=== PATIENT | female | born 1990 | race Caucasian/White ===

== ENCOUNTER 2017-11-15 09:13 | Emergency (ER) | payer OTHER, SELFPAY | END 2017-11-15 10:08 | disposition home or self-care (01) | PROVIDERS: Emergency Provider Nurse Practitioner Family; Visit Provider Nurse Practitioner Family | DX: J06.9 Acute upper respiratory infection, unspecified (principal); F41.8 Other specified anxiety disorders; F17.210 Nicotine dependence, cigarettes, uncomplicated | CPT/HCPCS: 99201 ==

== ENCOUNTER 2017-11-16 08:38 | Outpatient (RCR) | payer OTHER, SELFPAY | END 2017-11-16 23:59 | LOC: OT 08:38 | PROVIDERS: Visit Provider Surgery Plastic and Reconstructive Surgery | DX: S61.219A Laceration without foreign body of unspecified finger without damage to nail, initial encounter (principal) ==

== ENCOUNTER 2017-11-21 13:00 | Outpatient (RCR) | payer OTHER, SELFPAY | END 2017-11-21 23:59 | LOC: OT 13:00 | PROVIDERS: Visit Provider Surgery Plastic and Reconstructive Surgery | DX: S61.219A Laceration without foreign body of unspecified finger without damage to nail, initial encounter (principal) | CPT/HCPCS: 29125; 97018; 97110; 97140; 97165 ==

== ENCOUNTER → 2019-05-08 13:40 | Outpatient (CLI) | payer OTHER, SELFPAY ==
[2019-05-08 14:01] LABS: Basophils # 0.1 K/mm3 (0-0.2); Eosinophils # 0.1 K/mm3 (0.0-0.4); Eosinophils % 0.7 % (0.1-12.0); Hematocrit 42.8 % (37.0-47.0); Hemoglobin 13.8 g/dL (12.2-16.2); Lymphocytes # 1.7 K/mm3 (0.7-4.5); Lymphocytes % 23.4 % (10-50); Mean Corpuscular HGB Conc 32.3 g/dL (31.8-35.4); Mean Corpuscular Hemoglobin 28.3 pg (27.0-31.2); Mean Corpuscular Volume 87.8 fl (81-99); Mean Platelet Volume 7.6 fl (7.4-10.4); Monocytes # 0.5 K/mm3 (0.1-1.0); Monocytes % 7.4 % (1.7-9.3); Neutrophils # 4.8 K/mm3 (1.8-7.8); Neutrophils % 67.6 % (37.0-80.0); Platelet Count 307 K/mm3 (142-424); Red Blood Count 4.87 M/mm3 (4.20-5.40); Red Cell Distribution Width 11.7 % (11.5-17.5); White Blood Count 7.1 K/mm3 (4.8-10.8)
[2019-05-08 15:49] LABS: Alanine Aminotransferase 32 U/L (12-78); Albumin Level 4.2 gm/dL (3.4-5.0); Albumin/Globulin Ratio 1.4 (1.1-1.8); Alkaline Phosphatase 65 U/L (46-116); Anion Gap 16.5 mEq/L (5-15); Aspartate Amino Transferase 16 U/L (15-37); Blood Urea Nitrogen 14 mg/dL (7-18); Calcium 9.1 mg/dL (8.5-10.1); Carbon Dioxide 26 mmol/L (21.0-32.0); Chloride 105 mmol/L (98-107); Chol/HDL Ratio 2.7 (1-3.5); Cholesterol 128 mg/dL (140-200); Creatinine,Serum 0.68 mg/dL (0.55-1.02); Estimated Glomerular Filt Rate 104 ml/min (>60); GFR (African American) 126 ML/MIN (>60); Glucose 89 mg/dL (74-106); HDL Cholesterol 48 mg/dL (29-89); LDL Cholesterol 72 mg/dL (0-130); Potassium 4.5 mmoL/L (3.5-5.1); Sodium 143 mmol/L (136-145); T4 (Thyroxine) 7.6 ug/dl (4.7-13.3); Thyroid Stimulating Hormone 0.87 uIU/ml (0.358-3.740); Total Protein,Serum 7.2 gm/dL (6.4-8.2); Triglycerides 40 mg/dL (30-200); VLDL Cholesterol 8 mg/dL (0-40)
[2019-05-09 07:12] LABS: Hep A Ab, IgM Negative (Negative); Hepatitis B Core Antibody IgM Negative (Negative); Hepatitis B Surface Antigen Negative (Negative)
[2019-05-09 07:48] LABS: HIV Screen 4th Generation wRfx Non Reactive (Non Reactive); Hepatitis C Antibody <0.1 s/co ratio (0.0-0.9)
[2019-05-09 18:57] LABS: CEA 4.4 ng/mL (0.0-4.7); Cancer Antigen (CA) 125 9.9 U/mL (0.0-38.1); Vitamin D 25 Hydroxy 48.5 ng/mL (30.0-100.0)
== END ==
PROVIDERS: Visit Provider Physician Assistant
DX: R63.4 Abnormal weight loss (principal); R10.31 Right lower quadrant pain; R63.0 Anorexia; R68.81 Early satiety
CPT/HCPCS: 80053; 80061; 80074; 82378; 82652; 84436; 84443; 85025; 86316; 86703; G0432

== ENCOUNTER → 2019-05-13 14:49 | Outpatient (CLI) | payer OTHER, SELFPAY ==
--- NOTE | 2019-05-13 14:52 | US_ITS ---
US transvaginal HISTORY: ITS.REASON: RLQ pain ORDERING PHYSICIAN: KENJI Coulter PATIENT AGE: 28 years Comparison: None FINDINGS: Uterus is 8.1 x 4.3 x 4.9 cm. Right ovary is 3.5 x 1.8 x 2.4 cm. Left ovary is 3.4 x 2.2 x 2.3 cm. There is no cul-de-sac fluid. IUD is within the uterine cavity. There are some small follicles involving both ovaries and there is normal blood flow to both ovaries. Endometrial thickness is 6.0 mm. IMPRESSION: Bilateral small ovarian follicles. No acute process.
== END ==
PROVIDERS: PCP Physician Assistant; Visit Provider Physician Assistant
DX: R10.31 Right lower quadrant pain (principal); R63.0 Anorexia; R63.4 Abnormal weight loss; R68.81 Early satiety
CPT/HCPCS: 76830

== ENCOUNTER → 2019-05-27 08:17 | Outpatient (CLI) | payer OTHER, SELFPAY ==
--- NOTE | 2019-05-27 08:19 | CT_ITS ---
CT abdomen pelvis wo con CLINICAL INDICATION: Lower abdominal pain with nausea, 30 pound weight loss ITS.REASON: dyspnea, weight loss, chest pain. ORDERING PHYSICIAN: KENJI Coulter PATIENT AGE: 28 years COMPARISON: None TECHNIQUE: Axial images obtained with sagittal and coronal reformats. All CT scans at the facility use one or more dose reduction, viz: automated exposure control, ma/kV adjustment per patient size (including targeted exams where dose is matched to indication, i.e. head), or iterative reconstruction technique. FINDINGS: No acute finding in the lung bases. The liver, spleen, adrenal glands, pancreas, gallbladder, and kidneys have an unremarkable CT appearance without contrast. No intestinal structure or free air is evident. There is a moderate amount of retained colonic feces throughout the colon. There is an IUD in place. No evidence of appendicitis or diverticulitis. There is a ringlike area of hyperdensity in the right lower quadrant medial to the cecum and could represent a hyperdense diverticulum. There are multiple unopacified bowel loops. This along with scar's of the of the patient's intra-abdominal fat moderately decreases the sensitivity of this exam. If symptoms persist, would recommend follow-up with IV and oral contrast. No acute bony findings. IMPRESSION: 1. No acute abdominal or pelvic findings. 2. There is a ringlike area of hyperdensity in the right lower quadrant medial to the cecum and could represent a hyperdense diverticulum. 3. There are multiple unopacified bowel loops present within the abdomen/pelvis which could obscure or mimic pathology. If symptoms persists, consider repeating exam with IV and oral contrast administration
== END ==
PROVIDERS: PCP Physician Assistant; Visit Provider Physician Assistant
DX: R10.31 Right lower quadrant pain (principal); R63.0 Anorexia; R63.4 Abnormal weight loss; R68.81 Early satiety
CPT/HCPCS: 74176

== ENCOUNTER 2020-07-22 14:15 | Emergency (ER) | payer BC, OTHER, SELFPAY ==
[2020-07-22 14:50] VITALS: BP 107/63; PULSE 75; RESP 17; TEMP 36.5; O2SAT 100; BMI 26.5
--- NOTE | 2020-07-22 14:56 | HMH.EDUTC ---
[facility] [place]ression: Sinusitis Qualifiers: Sinusitis location: unspecified location Chronicity: acute Recurrence: non-recurrent Qualified Code(s): J01.90 - Acute sinusitis, unspecified Pharyngitis Qualifiers: Pharyngitis/tonsillitis etiology: unspecified etiology Qualified Code(s): J02.9 - Acute pharyngitis, unspecified Disposition: Home, Self-Care Condition on Discharge: Good Instructions: Sinusitis, DI for Sinusitis Additional Instructions: Drink plenty of fluids. Take tylenol or ibuprofen for pain or fever. Take the medications as directed. Follow up with your regular doctor. GO TO THE ER FOR ANY WORSENING SYMPTOMS Prescriptions: Brompheniramine/Pseudoephed/Dm [Bromfed Dm Cough Syrup] 5 ml PO Q6HP PRN #240 syrup PRN Reason: Cough Transmission Status: Received by [facility] predniSONE [Deltasone 10mg tablet] 10 mg PO BID 3 Days #6 tab Transmission Status: Received by [facility] Azithromycin [Z-Emmanuel 250mg Tab*] 250 mg PO UD DOSE PK #6 tab Transmission Status: Received by [facility] Referrals: Koki Barajas PA [Primary Care Provider] - Forms: Work/School Release Time of Disposition: 15:18 Medical Decision Making - Medical Records Medical records reviewed: No: I reviewed the patient's medical records. - Spencer Inquiry Pt receiving controlled substance: No Vital Signs: 07/22/20 14:50 07/22/20 15:05 Temperature 97.7 F 97.7 F Temperature Source Oral Oral Pulse Rate 75 Pulse Rate [Left] 75 Respiratory Rate 17 17 Blood Pressure 107/63 L Blood Pressure [Right Arm] 107/63 L Blood Pressure Mean [Right Arm] 77 Blood Pressure Source Automatic Cuff Blood Pressure Source [Right Arm] Automatic Cuff Blood Pressure Position Sitting Blood Pressure Position [Right Arm] Sitting 02 Sat by Pulse Oximetry 100 Oxygen Delivery Method Room Air Room Air - Lab Data Lab results reviewed: Yes: I reviewed the patient's lab results. Lab Results 07/22/20 15:05: Strep Scn Rapid Clinic Negative Orders (Tests/Meds): ORDERS Category Date Time Status Covid-19 Nasal PCR Sendout Eliud Stat Lab 07/22/20 15:17 Received Strep Screen Confirmation Stat Micro 07/22/20 15:05 [place] [facility] [place] - General Stated complaint: Nausea, congestion in face Time Seen by Provider: 07/22/20 14:57 - History of Present Illness Provider Complaint: She c/o sinus congestion, sinus drainage, chilling, low grade fever, and nausea for the past 2 days. She denies any known exposure to COVID-19. - Related Data Previous Rx's Medication Instructions Recorded Brompheniramine/Pseudoephed/Dm 5 ml PO Q6HP PRN #240 syrup 02/01/20 [Bromfed Dm Cough Syrup] Ondansetron [Zofran 4mg ODT] 4 mg PO Q8HP PRN #20 tab.rapdis 02/01/20 bupropion HCl 150 mg 24 hr tablet, 150 mg PO DAILY #90 tab 05/20/20 extended release buspirone 5 mg tablet 5 mg PO TID #90 tab 05/20/20 paroxetine HCl 20 mg tablet 20 mg PO DAILY 90 Days #90 tab 05/21/20 Azithromycin [Z-Emmanuel 250mg Tab*] 250 mg PO UD DOSE PK #6 tab 07/22/20 Brompheniramine/Pseudoephed/Dm 5 ml PO Q6HP PRN #240 syrup 07/22/20 [Bromfed Dm Cough Syrup] predniSONE [Deltasone 10mg tablet] 10 mg PO BID 3 Days #6 tab 07/22/20 Allergies Allergy/AdvReac Type Severity Reaction Status Date / Time No Known Allergies Allergy Verified 07/03/19 16:52 [facility] History - Hepatitis A Screen Attestation statement:: This patient has been screened for Hepatitis A risk factors. I have reviewed the patient's past medical history: Yes 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: Reports:: Anxiety, Depression Denies:: Cancer, Diabetes Mellitus Type 1, Diabetes Mellitus Type 2, MRSA Other Surgeries: Yes: Other Amputation: No Fractures: No Comment: d n c, finger - 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 Smoking Status: Current every day smoker Tobacco Type: cigarettes # Packs/Day (cigarettes): 2 Alcohol Intake: never Alcohol Intake Frequency:: holidays/special occasio
[2020-07-22 15:05] VITALS: BP 107/63; PULSE 75; RESP 17; TEMP 36.5; O2SAT 100
[2020-07-22 15:34] LABS: UTC Strep Screen (Rapid) Negative (Negative)
[2020-07-24 13:24] LABS: Covid-19 Nasal PCR Sendout Lex NOT DETECTED
== END 2020-07-22 15:37 | disposition home or self-care (01) ==
PROVIDERS: Emergency Provider Nurse Practitioner Family; PCP Physician Assistant
DX: J01.90 Acute sinusitis, unspecified (principal); J02.9 Acute pharyngitis, unspecified; F41.8 Other specified anxiety disorders; Z20.828 Contact with and (suspected) exposure to other viral communicable diseases; F17.210 Nicotine dependence, cigarettes, uncomplicated; F12.10 Cannabis abuse, uncomplicated
CPT/HCPCS: 87880; 99202; U0004

== ENCOUNTER 2021-07-12 18:14 | Emergency (ER) | payer OTHER, SELFPAY ==
[2021-07-12 19:35] VITALS: BP 0/0; PULSE 0; RESP 0; TEMP -17.7; TEMP 0; O2SAT 0
== END 2021-07-12 19:36 | disposition left against medical advice (07) ==
PROVIDERS: Emergency Provider Nurse Practitioner Family; PCP Physician Assistant
DX: Z53.21 Procedure and treatment not carried out due to patient leaving prior to being seen by health care provider (principal)

== ENCOUNTER → 2021-09-21 14:58 | Outpatient (CLI) | payer BC, OTHER, SELFPAY ==
--- NOTE | 2021-09-21 15:01 | XR_ITS ---
PROCEDURE: XR HAND LT MIN 3V CLINICAL INDICATION: pointer finger injury COMPARISON: CR HANDR3 HAND-RT 3 VIEWS from 09/24/2017 FINDINGS: No fracture or dislocation. No lytic or blastic change. There is normal mineralization. The joint spaces are well-preserved. No significant degenerative/arthritic changes. No erosive changes evident. Other findings:None. IMPRESSION: No acute findings. Dictated by: Ralhp Contreras MD 09/21/2021 16:42 Ralph Contreras MD in [place] 09/21/2021 16:42
== END ==
PROVIDERS: PCP Physician Assistant; Visit Provider Physician Assistant
DX: M79.645 Pain in left finger(s) (principal)
CPT/HCPCS: 73130

== ENCOUNTER 2022-02-07 17:52 | Emergency (ER) | payer OTHER, SELFPAY ==
--- NOTE | 2022-02-07 19:06 | HMH.EDUTC ---
[facility] [place] Impression: Acute bronchitis Qualifiers: Bronchitis organism: unspecified organism Qualified Code(s): J20.9 - Acute bronchitis, unspecified Sinusitis Qualifiers: Sinusitis location: unspecified location Chronicity: acute Recurrence: non-recurrent Qualified Code(s): J01.90 - Acute sinusitis, unspecified Disposition: Home, Self-Care Condition on Discharge: Good Instructions: DI for Sinusitis, DI for Acute Bronchitis Additional Instructions: Drink plenty of fluids. Take tylenol or ibuprofen for pain or fever. Take the medications as directed. Follow up with your regular doctor. GO TO THE ER FOR ANY WORSENING SYMPTOMS Prescriptions: Promethazine/Dextromethorphan [Promethazine-Dm Syrup] 5 ml PO Q6HP PRN #240 ml PRN Reason: Cough Transmission Status: Received by [facility] methylPREDNISolone [Medrol] 4 mg PO DIRECTED 6 Days #21 packet Transmission Status: Received by [facility] guaiFENesin [Mucinex 600mg tablet] 1 - 2 tab PO BIDP PRN #30 tab PRN Reason: Congestion Transmission Status: Received by [facility] Azithromycin [Z-Emmanuel 250mg Tab*] 250 mg PO UD DOSE PK #6 tab Transmission Status: Received by [facility] Referrals: Koki Barajas PA [Primary Care Provider] - Forms: Work/School Release Time of Disposition: 19:15 Medical Decision Making - Medical Records Medical records reviewed: No: I reviewed the patient's medical records. - Spencer Inquiry Pt receiving controlled substance: No Vital Signs: 02/07/22 19:14 02/07/22 19:20 Temperature 98.5 F 98.5 F Temperature Source Oral Oral Pulse Rate 61 Pulse Rate [Left Radial] 67 Respiratory Rate 16 17 Blood Pressure 114/70 Blood Pressure [Right Arm] 113/67 Blood Pressure Mean [Right Arm] 82 02 Sat by Pulse Oximetry 100 Oxygen Delivery Method Room Air - Lab Data Lab results reviewed: Yes: I reviewed the patient's lab results. Lab Results 02/07/22 18:54: Strep Scn Rapid Clinic Negative Orders (Tests/Meds): ORDERS Category Date Time Status Strep Screen Confirmation Stat Micro 02/07/22 18:54 [place] [facility] [place] - General Stated complaint: head congestion,sore throat, ears Time Seen by Provider: 02/07/22 19:06 - History of Present Illness Provider Complaint: She c/o having a cough with yellowish sputum, sore throat, sinus congestion, chilling at times, but no documented fever for the past 1 week. - Related Data Previous Rx's Medication Instructions Recorded cariprazine 1.5 mg capsule 1.5 mg PO DAILY #30 cap 09/06/21 clindamycin 1 %-benzoyl peroxide 5 1 applic TOPICAL BID #50 g 09/06/21 % topical gel minocycline 100 mg capsule 100 mg PO BID #60 cap 09/06/21 venlafaxine 75 mg capsule,extended 75 mg PO DAILY #30 cap 09/21/21 release 24 hr Azithromycin [Z-Emmanuel 250mg Tab*] 250 mg PO UD DOSE PK #6 tab 02/07/22 Promethazine/Dextromethorphan 5 ml PO Q6HP PRN #240 ml 02/07/22 [Promethazine-Dm Syrup] guaiFENesin [Mucinex 600mg tablet] 1 - 2 tab PO BIDP PRN #30 tab 02/07/22 methylPREDNISolone [Medrol] 4 mg PO DIRECTED 6 Days #21 02/07/22 packet Allergies Allergy/AdvReac Type Severity Reaction Status Date / Time No Known Allergies Allergy Verified 09/21/21 14:11 [facility] History - Hepatitis A Screen Attestation statement:: This patient has been screened for Hepatitis A risk factors. I have reviewed the patient's past medical history: Yes 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: Reports:: Anxiety, Depression Denies:: Cancer, Diabetes Mellitus Type 1, Diabetes Mellitus Type 2, Internal Pacemaker, MRSA Laterality Cases: Left: Other Other Surgeries: Yes: Dilation and Curettage, Other. No: Pacemaker Amputation: No Fractures: No Comment: d n c, finger - 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 Smoking Status: Never smoker Tobacco Type: smokeless tobacco # Packs/Day (cigarettes): 1 Alcohol Intake: current Alcohol Intake Frequency:: holidays/special occasions onl
[2022-02-07 19:12] LABS: UTC Strep Screen (Rapid) Negative (Negative)
[2022-02-07 19:14] VITALS: BP 113/67; PULSE 67; RESP 16; TEMP 36.9; O2SAT 100; BMI 22.1
[2022-02-07 19:20] VITALS: BP 114/70; PULSE 61; RESP 17; TEMP 36.9; O2SAT 100
== END 2022-02-07 19:22 | disposition home or self-care (01) ==
PROVIDERS: Emergency Provider Nurse Practitioner Family; PCP Physician Assistant
DX: J20.9 Acute bronchitis, unspecified (principal); J01.90 Acute sinusitis, unspecified
CPT/HCPCS: 87880; 99213; G0463

== ENCOUNTER 2022-04-14 07:50 | Emergency (ER) | payer OTHER, SELFPAY ==
[2022-04-14] VITALS (8 sets, daily range): BP systolic 100–124; BP diastolic 45–80; PULSE 65–76; RESP 18–19; TEMP 37; O2SAT 97–100; BMI 23.0
--- NOTE | 2022-04-14 07:53 | PC.NURSE ---
pt ambulatory to restroom to provide urine specimen without complications
--- NOTE | 2022-04-14 07:58 | PC.NURSE ---
pt ambulatory to ED room 10 from restroom without complications; UA sent to lab. February, RN at patient given warm blanket and has no other needs at this time.
[2022-04-14 08:01] LABS: Microscopic, Urine URINE MICROSCOPIC (MICROSCOPIC)
[2022-04-14 08:03] LABS: Appearance,Urine CLEAR (Clear); Blood, Urine 1+ (Negative); Color,Urine YELLOW (Yellow); Glucose,Urine (UA) Negative (Negative); Ketones,Urine Negative (Negative); Leukocyte Esterase,Urine Negative (Negative); Nitrate,Urine Negative (Negative); PH,Urine 6.5 (5.0-8.5); Protein,Urine TRACE (Negative); Specific Gravity, Urine 1.025 (1.005-1.030)
[2022-04-14 08:05] LABS: Urine Pregnancy, HCG Qual. Negative (Negative)
--- NOTE | 2022-04-14 08:06 | HMH.EDGENADL ---
ED Disposition Clinical Impression: Enterocolitis Disposition: Home, Self-Care Condition on Discharge: Good Instructions: DI for Enteritis Additional Instructions: Collect a diarrhea sample using the provided supplies and return it along with the order form to ER registration at [facility] for testing. Obtain the results of this test from your primary care provider the next day. Bentyl and ibuprofen as needed for pain. Follow-up with primary care provider if not improved in 4 to 5 days. Additional instructions for ABDOMINAL PAIN: Return immediately if worsening abdominal pain, vomiting, shortness of breath, fever, bloody diarrhea, vomiting of blood or abdominal distention. Prescriptions: Ibuprofen [Ibuprofen 600mg Tab] 600 mg PO Q6HP PRN #20 tab PRN Reason: Moderate Pain Transmission Status: Pending to [facility] Dicyclomine HCl [Bentyl 10mg capsule] 10 mg PO TIDP PRN #10 cap PRN Reason: Cramping Transmission Status: Pending to [facility] Referrals: Koki Barajas PA [Primary Care Provider] - - Critical Care Critical Care Time: No Attestation: On , the high probability of a clinically significant, sudden or life threatening deterioration of the following system(s) required my full and direct attention, intervention and personal management. The time I documented below is in addition to time spent performing reported procedures but includes the following listed in this critical care notation. Medical Decision Making - Spencer Inquiry Pt receiving controlled substance: No Vital Signs: 04/14/22 07:51 04/14/22 08:45 04/14/22 09:12 Temperature 98.6 F Temperature Source Oral Pulse Rate 67 Pulse Rate [Left Radial] 76 Respiratory Rate 18 Blood Pressure 105/64 L 121/76 Blood Pressure [Right Arm] 124/45 L Blood Pressure Mean 77 Blood Pressure Mean [Right Arm] 71 Blood Pressure Source Automatic Cuff Blood Pressure Source [Right Arm] Automatic Cuff Blood Pressure Position Sitting Blood Pressure Position [Right Arm] Sitting 02 Sat by Pulse Oximetry 97 100 Oxygen Delivery Method Room Air Room Air 04/14/22 09:31 04/14/22 10:00 04/14/22 10:36 Temperature Temperature Source Pulse Rate 66 75 67 Pulse Rate [Left Radial] Respiratory Rate Blood Pressure 100/55 L 101/54 L 116/80 Blood Pressure [Right Arm] Blood Pressure Mean Blood Pressure Mean [Right Arm] Blood Pressure Source Automatic Cuff Automatic Cuff Automatic Cuff Blood Pressure Source [Right Arm] Blood Pressure Position Sitting Sitting Sitting Blood Pressure Position [Right Arm] 02 Sat by Pulse Oximetry 100 98 99 Oxygen Delivery Method Room Air Room Air Room Air 04/14/22 11:04 Temperature Temperature Source Pulse Rate 72 Pulse Rate [Left Radial] Respiratory Rate Blood Pressure 107/70 L Blood Pressure [Right Arm] Blood Pressure Mean Blood Pressure Mean [Right Arm] Blood Pressure Source Automatic Cuff Blood Pressure Source [Right Arm] Blood Pressure Position Sitting Blood Pressure Position [Right Arm] 02 Sat by Pulse Oximetry 99 Oxygen Delivery Method Room Air - Lab Data Lab Results 04/14/22 07:56: Urine Color Yellow, Urine Appearance Clear, Urine pH 6.5, Ur Specific [place] 1.025, Urine Protein Trace, Urine Glucose (UA) Negative, Urine Ketones Negative, Urine Blood 1+, Urine Nitrate Negative, Urine Bilirubin 1+ A, Urine Urobilinogen 1.0, Ur Leukocyte Esterase Negative, Urine RBC 3-5, Urine WBC Occasional, Ur Squamous Epith Cells 10-20, Calcium Oxalate Crystal Trace, Urine Bacteria 4+, Urine Mucus 4+, Urine Yeast Occasional 04/14/22 07:56: Urine HCG, Qual Negative 04/14/22 08:05: WBC 6.4, RBC 4.43, Hgb 13.7, Hct 39.0, MCV 88.0, MCH 30.8, MCHC 35.0, RDW 12.8, Plt Count 317, MPV 7.9, Neut % (Auto) 76.6, Lymph % (Auto) 13.7, Becker % (Auto) 6.4, Eos % (Auto) 1.1, Baso % (Auto) 2.1 H, Neut # (Auto) 4.9, Lymph # (Auto) 0.9, Becker # (Auto) 0.4, Eos # (Aut
[2022-04-14 08:09] LABS: Bilirubin,Urine 1+ (Negative)
[2022-04-14 08:18] LABS: WBC,Urine Occasional #/hpf (0-3)
[2022-04-14 08:19] LABS: Bacteria,Urine 4+ /lpf; Calcium Oxalate Crystals,Urine Trace /lpf; Mucus,Urine 4+ /lpf; Yeast,Urine Occasional /lpf
--- NOTE | 2022-04-14 08:19 | CT_ITS ---
FINAL REPORT TECHNIQUE: Thin section axial images were obtained from the lung bases to the pubic symphysis without IV contrast. Oral contrast was administered. CLINICAL HISTORY: lt lower abdominal pain, cramping, vomiting oral contrast FINDINGS: There are no renal or ureteral stones. There is no hydronephrosis or perinephric stranding. The gallbladder is present. The remaining unenhanced solid abdominal organs are unremarkable. There is no evidence of small bowel obstruction. The appendix is normal. There is long segment: Wall thickening favoring mild colitis. There is no lymphadenopathy or ascites. There is an IUD within the uterus. The ovaries are normal for patient age. No acute osseous abnormality is identified. IMPRESSION: Probable infectious or inflammatory colitis. Reviewed, Interpreted and Dictated by Dedra Coronado MD Transcribed by Timothy Miranda Authenticated by Dedra Coronado MD on 04/14/2022 11:19:56 AM [facility]
[2022-04-14 08:23] LABS: Basophils # 0.1 K/mm3 (0-0.2); Basophils % 2.1 % (0.1-2.0); Eosinophils # 0.1 K/mm3 (0.0-0.4); Eosinophils % 1.1 % (0.1-12.0); Hemoglobin 13.7 g/dL (12.2-16.2); Lymphocytes # 0.9 K/mm3 (0.7-4.5); Lymphocytes % 13.7 % (10-50); Mean Corpuscular Hemoglobin 30.8 pg (27.0-31.2); Mean Platelet Volume 7.9 fl (7.4-10.4); Monocytes # 0.4 K/mm3 (0.1-1.0); Monocytes % 6.4 % (1.7-9.3); Neutrophils # 4.9 K/mm3 (1.8-7.8); Neutrophils % 76.6 % (37.0-80.0); Platelet Count 317 K/mm3 (142-424); Red Blood Count 4.43 M/mm3 (4.20-5.40); Red Cell Distribution Width 12.8 % (11.5-17.5); White Blood Count 6.4 K/mm3 (4.8-10.8)
[2022-04-14 08:37] LABS: Alanine Aminotransferase 17 U/L (12-78); Albumin Level 4.1 g/dl (3.5-5.0); Albumin/Globulin Ratio 1.6 (1.1-1.8); Alkaline Phosphatase 55 U/L (38-126); Amylase 46 U/L (30-110); Anion Gap 12.5 mEq/L (5-15); Aspartate Amino Transferase 21 U/L (14-36); Blood Urea Nitrogen 10 mg/dl (7-17); Calcium 8.9 mg/dl (8.4-10.2); Carbon Dioxide 27 mmol/L (22.0-30.0); Chloride 105 mmol/L (98-107); Creatinine Clearance Estimated 96 mL/min (50-200); Estimated Glomerular Filt Rate 84 ml/min (>60); GFR (African American) 102 ML/MIN (>60); Globulin 2.5 g/dL (1.3-3.2); Glucose 109 mg/dl (74-100); Lipase 49 U/L (23-300); Potassium 3.5 mmoL/L (3.5-5.1); Sodium 141 mmol/L (136-145); Total Protein,Serum 6.6 g/dl (6.3-8.2)
[2022-04-14 08:51] LABS: HCG Qualitative, Serum Negative (Negative)
--- NOTE | 2022-04-14 10:14 | PC.NURSE ---
Patient ambulatory to CT with music sound light technician
--- NOTE | 2022-04-14 11:05 | PC.NURSE ---
February, RN at giving patient update
--- NOTE | 2022-04-14 11:22 | PC.NURSE ---
ED MD at speaking with patient
--- NOTE | 2022-04-14 11:29 | PC.NURSE ---
Christina Bone, RN at discussing discharge instructions
== END 2022-04-14 11:36 | disposition home or self-care (01) ==
PROVIDERS: Emergency Provider Emergency Medicine; PCP Physician Assistant
DX: K52.9 Noninfective gastroenteritis and colitis, unspecified (principal); R50.9 Fever, unspecified; F32.A Depression, unspecified; F41.9 Anxiety disorder, unspecified; F17.290 Nicotine dependence, other tobacco product, uncomplicated
CPT/HCPCS: 74176; 80053; 81001; 81025; 82150; 83690; 84703; 85025; 87086; 96361; 96374; 96375; 99285; J2405

== ENCOUNTER → 2022-04-14 12:57 | Outpatient (CLI) | payer OTHER, SELFPAY ==
[2022-04-14 13:04] LABS: Adenovirus F 40/41, stool Not Detected (NotDetected); Astrovirus Not Detected (NotDetected); Campylobacter Not Detected (NotDetected); Clostridium Difficile A/B, PCR Not Detected (NotDetected); Cryptosporidium Not Detected (NotDetected); Cyclospora Cayetanesis Not Detected (NotDetected); Entamoeba histolytica Not Detected (NotDetected); Enteroaggregative E coli Not Detected (NotDetected); Enteropathogenic E coli Not Detected (NotDetected); Enterotoxigenic E coli Not Detected (NotDetected); Giardia lamblia Not Detected (NotDetected); Norovirus Not Detected (NotDetected); Plesimonas Shigalloides, PCR Not Detected (NotDetected); Rotavirus A Not Detected (NotDetected); Salmonella, PCR Not Detected (NotDetected); Sapovirus Not Detected (NotDetected); Shiga-like toxin E coli Not Detected (NotDetected); Shigella Enterovasive E coli Not Detected (NotDetected); Vibrio Cholerae Not Detected (NotDetected); Vibrio, PCR Not Detected (NotDetected); Yersinia Entercolitica, PCR Not Detected (NotDetected)
== END ==
PROVIDERS: PCP Physician Assistant; Visit Provider Emergency Medicine
DX: K52.9 Noninfective gastroenteritis and colitis, unspecified
CPT/HCPCS: 87506

== ENCOUNTER 2022-06-03 12:20 | Emergency (ER) | payer OTHER, SELFPAY ==
[2022-06-03 12:32] VITALS: BP 117/67; PULSE 93; RESP 16; TEMP 37.1; O2SAT 97; BMI 21.2
--- NOTE | 2022-06-03 13:12 | HMH.EDUTC ---
[facility] [place]ression: Viral syndrome, COVID-19 Disposition: Home, Self-Care Condition on Discharge: Good Instructions: DI for COVID-19 (Suspected or Confirmed ), Preventing the Spread of Coronavirus Discharge Instructions Additional Instructions: Drink plenty of fluids. Take tylenol or ibuprofen for pain or fever. Take the medications as directed. Follow up with your regular doctor. GO TO THE ER FOR ANY WORSENING SYMPTOMS Quarantine until you know the results of your covid-19 test. Notify your school or workplace of your results and follow their instructions regarding return to work/school. The cough medication (promethazine dm) will make you drowsy, so don't drive or operate heavy machinery after taking it. Prescriptions: Promethazine/Dextromethorphan [Promethazine-Dm Syrup] 5 ml PO Q6HP PRN #240 ml PRN Reason: Cough Transmission Status: Received by [facility] Ondansetron [Zofran 4mg ODT] 4 mg PO Q8HP PRN #12 tab PRN Reason: Nausea Transmission Status: Received by [facility] Benzonatate [Benzonatate 100mg cap] 100 mg PO TIDP PRN #30 cap PRN Reason: Cough Transmission Status: Received by [facility] Referrals: Koki Barajas PA [Primary Care Provider] - Time of Disposition: 13:20 Medical Decision Making - Medical Records Medical records reviewed: No: I reviewed the patient's medical records. - Spencer Inquiry Pt receiving controlled substance: No Vital Signs: 06/03/22 12:32 06/03/22 13:22 Temperature 98.7 F 98.7 F Temperature Source Oral Pulse Rate 93 H Pulse Rate [Left] 93 H Respiratory Rate 16 16 Blood Pressure 117/67 Blood Pressure [Right Arm] 117/67 Blood Pressure Mean [Right Arm] 83 02 Sat by Pulse Oximetry 97 - Lab Data Lab results reviewed: Yes: I reviewed the patient's lab results. [facility] [place] General Stated complaint: at home covid pos 06/02, congestion, h/a, fever Time Seen by Provider: 06/03/22 13:15 Description of Symptoms (Recalled from Triage Doc. by RN): patient comes in for covid test. symptoms began 2 days ago runny nose, fever, chillls, body aches. tested positive at home. HEENT Symptoms (Recalled from RN notes): Yes Resp Symptoms (Recalled from RN notes): Yes Skin Symptoms (Recalled from RN notes): No MS Symptoms (Recalled from RN notes): No Functional Status (Recalled from RN notes): n/a - History of Present Illness Provider Complaint: She is here for a covid-19 test. She has felt bad for the past 3 days. she was exposed to covid-19 before her symptoms began. - Related Data Previous Rx's Medication Instructions Recorded venlafaxine 75 mg capsule,extended 75 mg PO DAILY #30 cap 09/21/21 release 24 hr Dicyclomine HCl [Bentyl 10mg 10 mg PO TIDP PRN #10 cap 04/14/22 capsule] Ibuprofen [Ibuprofen 600mg Tab] 600 mg PO Q6HP PRN #20 tab 04/14/22 Benzonatate [Benzonatate 100mg 100 mg PO TIDP PRN #30 cap 06/03/22 cap] Ondansetron [Zofran 4mg ODT] 4 mg PO Q8HP PRN #12 tab 06/03/22 Promethazine/Dextromethorphan 5 ml PO Q6HP PRN #240 ml 06/03/22 [Promethazine-Dm Syrup] Allergies Allergy/AdvReac Type Severity Reaction Status Date / Time No Known Allergies Allergy Verified 06/03/22 12:35 - Worker's Comp Is this a Worker's Comp case?: No [facility] History - Hepatitis A Screen Attestation statement:: This patient has been screened for Hepatitis A risk factors. I have reviewed the patient's past medical history: Yes 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: Reports:: Anxiety, Depression Denies:: Cancer, Diabetes Mellitus Type 1, Diabetes Mellitus Type 2, Internal Pacemaker, MRSA Laterality Cases: Left: Other Other Surgeries: Yes: Dilation and Curettage, Other. No: Pacemaker Amputation: No Fractures: No Comment: d n c, finger - 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 Smoking Status: Current every day smoker Tobacco Type: e-cigarettes # Packs/Day (cigarettes): 1 Alcohol Intake: current Alcohol Inta
[2022-06-03 13:22] VITALS: BP 117/67; PULSE 93; RESP 16; TEMP 37.1
== END 2022-06-03 13:26 | disposition home or self-care (01) ==
PROVIDERS: Emergency Provider Nurse Practitioner Family; PCP Physician Assistant
DX: U07.1 COVID-19 (principal)
CPT/HCPCS: 99212; C9803; G0463; U0003; U0005

== ENCOUNTER 2022-06-28 21:44 | Emergency (ER) | payer OTHER, SELFPAY ==
[2022-06-28 21:46] VITALS: BP 110/68; PULSE 103; RESP 16; TEMP 38.7; O2SAT 100; BMI 21.2
--- NOTE | 2022-06-28 22:04 | HMH.EDURI ---
ED Disposition Instructions: DI for Diarrhea and Traveler's Diarrhea -- Adult, DI for Diarrhea and Traveler's Diarrhea -- Child, DI for Nausea -- Adult, DI for Nausea -- Child Referrals: Koki Barajas PA [Primary Care Provider] - Attestation: On 06/28/22, the high probability of a clinically significant, sudden or life threatening deterioration of the following system(s) required my full and direct attention, intervention and personal management. The time I documented below is in addition to time spent performing reported procedures but includes the following listed in this critical care notation. Medical Decision Making - Medical Records Medical records reviewed: Yes: I reviewed the patient's medical records. - Spencer Inquiry Pt receiving controlled substance: No Vital Signs: 06/28/22 21:46 Temperature 101.7 F H Temperature Source Oral Pulse Rate [Left Radial] 103 H Respiratory Rate 16 Blood Pressure [Right Arm] 110/68 Blood Pressure Mean [Right Arm] 82 Blood Pressure Source [Right Arm] Automatic Cuff Blood Pressure Position [Right Arm] Sitting 02 Sat by Pulse Oximetry 100 Oxygen Delivery Method Room Air - Lab Data Lab results reviewed: Yes: I reviewed the patient's lab results. Orders (Tests/Meds): ED MEDICATIONS Generic Name Dose Route Start Last Admin Trade Name Freq PRN Reason Stop Dose Admin Sodium Chloride 1,000 mls @ 999 mls/hr 06/28/22 22:15 06/28/22 22:07 Sod Chlor 0.9% 1000ml Bag IV 06/28/22 23:15 999 mls/hr .[id number] JAYLIN Administration Discontinued Medications Generic Name Dose Route Start Last Admin Trade Name Freq PRN Reason Stop Dose Admin Acetaminophen 1,000 mg 06/28/22 22:04 06/28/22 22:09 Acetaminophen 500mg Tab PO 06/28/22 22:05 1,000 mg ONCE ONE Administration Ketorolac Tromethamine 30 mg 06/28/22 22:05 Ketorolac 30mg/Ml Vial IV 06/28/22 22:06 ONCE ONE Ondansetron HCl 4 mg 06/28/22 22:04 Ondansetron 4mg/2ml Vial IV 06/28/22 22:05 ONCE ONE ORDERS Category Date Time Status C-Reactive Protein Stat Lab 06/28/22 21:55 Received Complete Blood Count Auto Diff Stat Lab 08/09/22 21:55 Received Comprehensive Metabolic Panel Stat Lab 06/28/22 21:55 Received Diarrhea 23 Panel, PCR Stat Lab 06/28/22 22:13 Ordered Erythrocyte Sedimentation Rate Stat Lab 06/28/22 21:55 Received Lactic Acid Stat Lab 06/28/22 21:55 Received Procalcitonin Stat Lab 06/28/22 21:55 Received Rapid PCR Covid and Flu A/B Stat Lab 06/28/22 22:03 Ordered Rapid Strep Scrn Group A [Strep Scrn Group A (Rapid)] Lab 06/28/22 21:55 Received Stat Urinalysis and Microscopic Stat Lab 06/28/22 21:50 Received Urine , HCG Qual. Stat Lab 06/28/22 21:50 Received Blood Culture Stat Micro 06/28/22 22:03 Ordered URI/Sore Throat HPI - General Chief Complaint: Nausea/Vomiting/Diarrhea Stated Complaint: fever,V&D,Body Aches Time Seen by Provider: 06/28/22 22:04 Mode of Arrival: Ambulatory Source of Information: Patient, Medical Record Limitations: No Limitations Description of Symptoms (Recalled from ER Triage Doc. by RN): PT REPORTS BODY ACHES, FEVER AT HOME, SORE THROAT, NAUSEA, DIARRHEA THAT BEGAN TODAY. - History of Present Illness HPI Narrative: achey and sore throat with dec appetite and fever all started today MD Complaint: fever, sore throat Onset (ago): hour(s) Severity: moderate Able to tolerate fluids by mouth: Yes Associated symptoms: denies other symptoms Treatments prior to arrival: none - Related Data Home Medications Medication Instructions Recorded Confirmed No Known Home Medications 06/28/22 06/28/22 Allergies Allergy/AdvReac Type Severity Reaction Status Date / Time No Known Allergies Allergy Verified 06/03/22 12:35 [facility] History - Hepatitis A Screen Attestation statement:: This patient has been screened for Hepatitis A risk factors. I have reviewed the patient's past medical histor
[2022-06-28 22:11] LABS: Microscopic, Urine URINE MICROSCOPIC (MICROSCOPIC)
[2022-06-28 22:13] LABS: Basophils # 0.1 K/mm3 (0-0.2); Basophils % 0.5 % (0.1-2.0); Eosinophils % 0.3 % (0.1-12.0); Lymphocytes # 0.8 K/mm3 (0.7-4.5); Mean Corpuscular HGB Conc 34.3 g/dL (31.8-35.4); Mean Corpuscular Hemoglobin 30.9 pg (27.0-31.2); Mean Corpuscular Volume 90.1 fl (81-99); Monocytes # 0.8 K/mm3 (0.1-1.0); Monocytes % 5.7 % (1.7-9.3); Neutrophils % 87.5 % (37.0-80.0); Platelet Count 296 K/mm3 (142-424); Red Blood Count 4.22 M/mm3 (4.20-5.40); Red Cell Distribution Width 12.2 % (11.5-17.5); White Blood Count 13.7 K/mm3 (4.8-10.8)
[2022-06-28 22:14] VITALS: BP 104/66; PULSE 86; RESP 16; O2SAT 99
[2022-06-28 22:16] LABS: Appearance,Urine CLEAR (Clear); Bilirubin,Urine Negative (Negative); Blood, Urine Negative (Negative); Color,Urine YELLOW (Yellow); Glucose,Urine (UA) Negative (Negative); Ketones,Urine 1+ (Negative); Leukocyte Esterase,Urine Negative (Negative); Nitrate,Urine Negative (Negative); Protein,Urine TRACE (Negative); Specific Gravity, Urine 1.025 (1.005-1.030)
[2022-06-28 22:18] LABS: Urine Pregnancy, HCG Qual. Negative (Negative)
[2022-06-28 22:19] LABS: Coronavirus 19, PCR Not Detected (NotDetected); Influenza A, PCR Not Detected (NotDetected); Influenza B, PCR Not Detected (NotDetected)
[2022-06-28 22:26] LABS: Alanine Aminotransferase 14 U/L (12-78); Albumin Level 4.5 g/dl (3.5-5.0); Albumin/Globulin Ratio 1.7 (1.1-1.8); Alkaline Phosphatase 73 U/L (38-126); Anion Gap 11.5 mEq/L (5-15); Aspartate Amino Transferase 21 U/L (14-36); Bilirubin,Total 1.3 mg/dl (0.2-1.3); Blood Urea Nitrogen 7 mg/dl (7-17); Carbon Dioxide 26 mmol/L (22.0-30.0); Chloride 105 mmol/L (98-107); Creatinine Clearance Estimated 101 mL/min (50-200); Estimated Glomerular Filt Rate 98 ml/min (>60); GFR (African American) 119 ML/MIN (>60); Globulin 2.6 g/dL (1.3-3.2); Glucose 108 mg/dl (74-100); Lactic Acid 0.7 mmol/L (0.7-2.1); Potassium 3.5 mmoL/L (3.5-5.1); Sodium 139 mmol/L (136-145); Total Protein,Serum 7.1 g/dl (6.3-8.2)
[2022-06-28 22:30] VITALS: BP 105/69; PULSE 89; RESP 16
[2022-06-28 22:31] LABS: C-Reactive Protein 24.6 mg/L (0-4); MANUAL DIFFERENTIAL MANUAL DIFFERENTIAL (MANUAL DIFF); Strep Scrn Group A (Rapid) Negative (Negative)
[2022-06-28 22:42] LABS: Lymphocytes % 3 % (10-50); Monocytes % 2 % (2-9); Neutrophils % 95 % (42-76); Total Cells Counted 100
[2022-06-28 22:43] LABS: Platelet Estimate Normal; RBC Morphology Normal
[2022-06-28 22:44] LABS: Bacteria,Urine Trace /lpf; RBC,Urine Occasional #/hpf (0-3)
[2022-06-28 22:45] LABS: Mucus,Urine 3+ /lpf; Yeast,Urine Occasional /lpf
[2022-06-28 22:45] LABS: Procalcitonin 0.062 ng/mL (0.0-2.0)
--- NOTE | 2022-06-28 22:54 | XR_ITS ---
PROCEDURE INFORMATION: Exam: XR Chest Exam date and time: 06/28/2022 10:53 PM Age: 31 years old Clinical indication: Cough and fever TECHNIQUE: Imaging protocol: Radiologic exam of the chest. Views: 2 views. COMPARISON: CR XR CHEST 2V 02/01/2020 3:44 PM FINDINGS: Lungs: Tiny granuloma in the periphery of the left mid lung. Lung parenchyma is otherwise clear and normal. Pleural spaces: Unremarkable. No pleural effusion. No pneumothorax. Heart/Mediastinum: Unremarkable. No cardiomegaly. Bones/joints: Mild thoracolumbar junction levoscoliosis. IMPRESSION: No acute cardiopulmonary abnormality.
[2022-06-28 23:00] VITALS: BP 117/70; PULSE 87; TEMP 37.8; O2SAT 99
[2022-06-28 23:12] LABS: Erythrocyte Sedimentation Rate 14 mm/hr (0-20)
[2022-06-28 23:24] LABS: Amylase 57 U/L (30-110); Lipase 35 U/L (23-300)
[2022-06-28 23:30] VITALS: BP 101/63; PULSE 76; O2SAT 98
[2022-06-28 23:45] VITALS: PULSE 87; RESP 16; TEMP 37.2; O2SAT 98
--- NOTE | 2022-06-28 23:56 | PC.NURSE ---
PT REPORTS THAT SHE IS FEELING BETTER. TEMP NOTED. IVF INFUSING WITHOUT DIFFICULTY. WCM.
[2022-06-29] VITALS: BP 92/53; PULSE 81; O2SAT 99
[2022-06-29 00:30] VITALS: BP 98/55; PULSE 69; O2SAT 97
[2022-06-29 01:00] VITALS: BP 98/58; PULSE 70; RESP 17; O2SAT 98
--- NOTE | 2022-06-29 01:20 | HMH.EDURI ---
ED Disposition Clinical Impression: Febrile illness, acute Disposition: Home, Self-Care Condition on Discharge: Good Instructions: DI for Nausea -- Adult Additional Instructions: fluids and use meds and call pcp for follow up Prescriptions: Azithromycin [Zithromax 250mg tab] 250 mg PO DIRECTED #6 tab Transmission Status: Pending to [facility] Referrals: Koki Barajas PA [Primary Care Provider] - - Critical Care Critical Care Time: No Attestation: On 06/28/22, the high probability of a clinically significant, sudden or life threatening deterioration of the following system(s) required my full and direct attention, intervention and personal management. The time I documented below is in addition to time spent performing reported procedures but includes the following listed in this critical care notation. Medical Decision Making - Medical Records Medical records reviewed: Yes: I reviewed the patient's medical records. - Spencer Inquiry Pt receiving controlled substance: No Vital Signs: 06/28/22 21:46 06/28/22 22:14 06/28/22 22:30 Temperature 101.7 F H Temperature Source Oral Pulse Rate 86 89 Pulse Rate [Left Radial] 103 H Respiratory Rate 16 16 16 Blood Pressure 104/66 L 105/69 L Blood Pressure [Right Arm] 110/68 Blood Pressure Mean 80 79 Blood Pressure Mean [Right Arm] 82 Blood Pressure Source [Right Arm] Automatic Cuff Blood Pressure Position [Right Arm] Sitting 02 Sat by Pulse Oximetry 100 99 Oxygen Delivery Method Room Air 06/28/22 23:00 06/28/22 23:30 06/28/22 23:45 Temperature 100.1 F H 98.9 F Temperature Source Oral Pulse Rate 87 76 87 Pulse Rate [Left Radial] Respiratory Rate 16 Blood Pressure 117/70 101/63 L Blood Pressure [Right Arm] Blood Pressure Mean 86 75 Blood Pressure Mean [Right Arm] Blood Pressure Source [Right Arm] Blood Pressure Position [Right Arm] 02 Sat by Pulse Oximetry 99 98 98 Oxygen Delivery Method Room Air 06/29/22 00:00 06/29/22 00:30 06/29/22 01:00 Temperature Temperature Source Pulse Rate 81 69 70 Pulse Rate [Left Radial] Respiratory Rate 17 Blood Pressure 92/53 L 98/55 L 98/58 L Blood Pressure [Right Arm] Blood Pressure Mean 65 Blood Pressure Mean [Right Arm] Blood Pressure Source [Right Arm] Blood Pressure Position [Right Arm] 02 Sat by Pulse Oximetry 99 97 98 Oxygen Delivery Method Room Air Room Air Room Air - Lab Data Lab results reviewed: Yes: I reviewed the patient's lab results. Lab Results 06/28/22 21:50: Urine Color Yellow, Urine Appearance Clear, Urine pH 6.0, Ur Specific [place] 1.025, Urine Protein Trace, Urine Glucose (UA) Negative, Urine Ketones 1+, Urine Blood Negative, Urine Nitrate Negative, Urine Bilirubin Negative, Urine Urobilinogen 1.0, Ur Leukocyte Esterase Negative, Urine RBC Occasional, Urine WBC None, Ur Squamous Epith Cells 3-5, Urine Bacteria Trace, Urine Mucus 3+, Urine Yeast Occasional 06/28/22 21:50: Urine HCG, Qual Negative 06/28/22 21:55: WBC 13.7 H, RBC 4.22, Hgb 13.0, Hct 38.0, MCV 90.1, MCH 30.9, MCHC 34.3, RDW 12.2, Plt Count 296, MPV 8.0, Neut % (Auto) 87.5 H, Lymph % (Auto) 6.0 L, [place] % (Auto) 5.7, Eos % (Auto) 0.3, Baso % (Auto) 0.5, Neut # (Auto) 12.0 H, Lymph # (Auto) 0.8, [place] # (Auto) 0.8, Eos # (Auto) 0.0, Baso # (Auto) 0.1, Total Counted 100, Neutrophils % (Manual) 95 H, Lymphocytes % (Manual) 3 L, Monocytes % (Manual) 2, Platelet Estimate Normal, RBC Morphology Normal, ESR 14 06/28/22 21:55: Sodium 139, Potassium 3.5, Chloride 105, Carbon Dioxide 26, Anion Gap 11.5, BUN 7, Creatinine 0.70, Estimated Creat Clear 101, Estimated GFR 98, Est GFR ( Amer) 119, Glucose 108 H, Calcium 9.0, Total Bilirubin 1.3, AST 21, ALT 14, Alkaline Phosphatase 73, C-Reactive Protein 24.6 H, Total Protein 7.1, Albumin 4.5, Globulin 2.6, Albumin/Globulin Ratio 1.7, Procalcitonin 0.062 06/28/22 21:55: Lactate 0.7 06/28/22 21:55: Group A
[2022-06-29 01:27] VITALS: BP 89/42; PULSE 83; RESP 16; TEMP 36.7; O2SAT 100
== END 2022-06-29 01:36 | disposition home or self-care (01) ==
PROVIDERS: Emergency Provider Emergency Medicine; PCP Physician Assistant
DX: R50.9 Fever, unspecified (principal); R11.2 Nausea with vomiting, unspecified; R19.7 Diarrhea, unspecified; J02.9 Acute pharyngitis, unspecified
CPT/HCPCS: 71046; 80053; 81001; 81025; 82150; 83605; 83690; 84145; 85007; 85025; 85651; 86140; 87040; 87430; 96365; 96366; 96375; 99284; C9803; J2405; U0003; U0005

== ENCOUNTER → 2022-08-16 14:15 | Outpatient (CLI) | payer OTHER, SELFPAY ==
[2022-08-16 13:09] LABS: Basophils # 0.1 K/mm3 (0-0.2); Eosinophils # 0.1 K/mm3 (0.0-0.4); Eosinophils % 1.5 % (0.1-12.0); Hematocrit 44.1 % (37.0-47.0); Hemoglobin 14.6 g/dL (12.2-16.2); Lymphocytes # 1.4 K/mm3 (0.7-4.5); Lymphocytes % 19.7 % (10-50); Mean Corpuscular HGB Conc 33.1 g/dL (31.8-35.4); Mean Corpuscular Hemoglobin 30.2 pg (27.0-31.2); Mean Corpuscular Volume 91.3 fl (81-99); Monocytes # 0.4 K/mm3 (0.1-1.0); Monocytes % 5.7 % (1.7-9.3); Neutrophils # 5.2 K/mm3 (1.8-7.8); Platelet Count 337 K/mm3 (142-424); Red Blood Count 4.83 M/mm3 (4.20-5.40); Red Cell Distribution Width 12.9 % (11.5-17.5); White Blood Count 7.2 K/mm3 (4.8-10.8)
[2022-08-16 13:14] LABS: Alanine Aminotransferase 14 U/L (12-78); Albumin Level 4.2 g/dl (3.5-5.0); Albumin/Globulin Ratio 1.7 (1.1-1.8); Alkaline Phosphatase 63 U/L (38-126); Anion Gap 13.5 mEq/L (5-15); Aspartate Amino Transferase 24 U/L (14-36); Bilirubin,Total 0.7 mg/dl (0.2-1.3); Blood Urea Nitrogen 9 mg/dl (7-17); Carbon Dioxide 29 mmol/L (22.0-30.0); Chloride 102 mmol/L (98-107); Chol/HDL Ratio 2.7 (1-3.5); Cholesterol 154 mg/dl (140-200); Estimated Glomerular Filt Rate 98 ml/min (>60); GFR (African American) 119 ML/MIN (>60); Globulin 2.5 g/dL (1.3-3.2); Glucose 97 mg/dl (74-100); HDL Cholesterol 57 mg/dl (40-60); Potassium 4.5 mmoL/L (3.5-5.1); Sodium 140 mmol/L (136-145); Total Protein,Serum 6.7 g/dl (6.3-8.2); Triglycerides 69 mg/dl (30-150); VLDL Cholesterol 14 mg/dL (0-40)
[2022-08-16 13:25] LABS: Direct LDL Cholesterol 81.84 mg/dL (100-129)
[2022-08-16 13:31] LABS: 25-OH Vitamin D, Total 51.2 ng/mL (30-100)
[2022-08-16 13:45] LABS: Thyroid Stimulating Hormone 1.97 uIU/mL (0.465-4.68)
[2022-08-16 14:04] LABS: Vitamin B12 680 pg/mL (239-931)
== END ==
PROVIDERS: PCP Physician Assistant; Visit Provider Physician Assistant
DX: F33.1 Major depressive disorder, recurrent, moderate
CPT/HCPCS: 80053; 80061; 82306; 82607; 84443; 85025

== ENCOUNTER 2022-12-16 11:31 | Emergency (ER) | payer OTHER, SELFPAY ==
[2022-12-16 11:40] VITALS: RESP 20; TEMP 37.1; O2SAT 98; BMI 23.7
[2022-12-16 11:50] LABS: UTC Influenza A Antigen Negative (Negative)
[2022-12-16 11:51] LABS: UTC Influenza B Antigen Negative (Negative)
--- NOTE | 2022-12-16 12:08 | EXP.UTC ---
Discharge Plan Disposition Patient Disposition: Home, Self-Care Condition: Good Prescriptions Prescriptions: New ondansetron 8 mg tablet,disintegrating 8 mg PO TID PRN (Reason: Nausea/vomiting) Qty: 30 0RF No Action Classic 28 mg iron- 800 mcg tablet 1 tab PO DAILY Qty: 30 11RF Mirena 20 mcg/24 hours (7 yrs) 52 mg intrauterine device INTRAUTERI Vraylar 1.5 mg capsule 1.5 mg PO DAILY Qty: 90 1RF spironolactone 50 mg tablet 50 mg PO DAILY Qty: 30 5RF Referrals Follow up/Referrals: Koki Barajas PA [Primary Care Provider] - See instructions Activity Restrictions/Add. Instructions Additional Instructions/Restrictions: Clear liquids, bland food Clinical Impressions Clinical Impression: Gastroenteritis Instructions Patient Instructions: DI for Viral Gastroenteritis -- Adult Discharge ED Provider: Koki Barajas [facility] [place] [facility] HPI General Stated complaint: Vomitting diarrhea chills bodyaches Mode of Arrival: Ambulatory Source of Information: Patient Limitations: No Limitations Time Seen by Provider: 12/16/22 12:08 Description of Symptoms (Recalled from Triage Doc. by RN): chills, body aches, vomiting, and diarrhea HEENT Symptoms (Recalled from RN notes): Yes Resp Symptoms (Recalled from RN notes): No Skin Symptoms (Recalled from RN notes): No MS Symptoms (Recalled from RN notes): No Functional Status (Recalled from RN notes): n/a History of Present Illness Provider Complaint: Vomiting, diarrhea, chills, body aches x 1 day. No fever. Has urinated one time this am. Has not really been able to keep anything down. Onset (ago): day(s) (1) Relieving factors: none Exacerbating factors: eating Treatments prior to arrival: none Related Data Home Medications Medication Instructions Recorded Confirmed levonorgestrel 20 mcg/24 hours (8 intrauterine 06/30/22 12/15/22 yrs) 52 mg intrauterine device (Mirena) Previous Rx's Medication Instructions Recorded spironolactone 50 mg tablet 50 mg PO DAILY #30 tabs 09/26/22 cariprazine 1.5 mg capsule 1.5 mg PO DAILY #90 caps 11/07/22 (Vraylar) vits no.126-ferrous fum 1 tab PO DAILY #30 tabs 11/29/22 28 mg iron-folic acid 800 mcg tablet (Classic ) ondansetron 8 mg disintegrating 8 mg PO TID PRN Nausea/vomiting 12/16/22 tablet #30 tabs Allergies Allergy/AdvReac Type Severity Reaction Status Date / Time No Known Allergies Allergy Verified 12/16/22 11:50 Worker's Comp Is this a Worker's Comp case?: No PFSH PFS Disclaimer: The information contained in this section may have been updated after the patient was seen, as this information can be updated by other users. 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 (Updated 12/16/22 @ 12:27 by KENJI Coulter) Acne Depression Surgical History (Updated 11/29/22 @ 11:18 by Maliha Mai) H/O dilation and curettage History of surgery on upper extremity Family History Father Alcoholism Substance abuse FHx: mental illness anger; attempted suicide Grandfather Hypertension Hyperlipidemia Grandmother Hypertension 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 Smoking Status: Current every day smoker tobacco type: e-cigarettes second hand exposure: No alcohol intake: current counseling given: No substance use type: former substance user, marijuana and opiates current occupational status: unemployed Travel in the last 8 weeks: None adopted: No caregiver/support person: Yes (for her kids; they are 6 and 7 years old) foster care: No household members: children housing: house lives independently: Yes marital status: single number of children: 4 number of grandchildren: 0 education level: other details: DROPPED OUT in her 11th grade; she did get her GED service: No shelter: No current occupational exposures/hazards: No Hx Recent
[2022-12-16 13:01] VITALS: BP 116/55; PULSE 91; RESP 20; TEMP 37.1; O2SAT 98
== END 2022-12-16 12:50 | disposition home or self-care (01) ==
PROVIDERS: Emergency Provider Physician Assistant; PCP Physician Assistant
DX: K52.9 Noninfective gastroenteritis and colitis, unspecified (principal)
CPT/HCPCS: 87804; 96372; 99212; 99213; G0463

== ENCOUNTER → 2023-04-11 16:23 | Outpatient (CLI) | payer OTHER, SELFPAY ==
[2023-04-11 13:48] LABS: Basophils % 0.3 % (0.1-2.0); Eosinophils % 0.4 % (0.1-12.0); Hematocrit 38.9 % (37.0-47.0); Hemoglobin 13.2 g/dL (12.2-16.2); Lymphocytes # 1.3 K/mm3 (0.7-4.5); Mean Corpuscular HGB Conc 33.9 g/dL (31.8-35.4); Mean Corpuscular Volume 88.5 fl (81-99); Mean Platelet Volume 8.2 fl (7.4-10.4); Monocytes # 0.4 K/mm3 (0.1-1.0); Monocytes % 4.8 % (1.7-9.3); Neutrophils # 7.2 K/mm3 (1.8-7.8); Neutrophils % 79.6 % (37.0-80.0); Platelet Count 350 K/mm3 (142-424); Red Blood Count 4.39 M/mm3 (4.20-5.40); Red Cell Distribution Width 12.7 % (11.5-17.5)
[2023-04-11 13:55] LABS: Alanine Aminotransferase 17 U/L (12-78); Albumin Level 4.3 g/dl (3.5-5.0); Albumin/Globulin Ratio 1.8 (1.1-1.8); Alkaline Phosphatase 50 U/L (38-126); Anion Gap 15.7 mEq/L (5-15); Aspartate Amino Transferase 22 U/L (14-36); Bilirubin,Total 0.7 mg/dl (0.2-1.3); Blood Urea Nitrogen 9 mg/dl (7-17); Calcium 8.9 mg/dl (8.4-10.2); Carbon Dioxide 26 mmol/L (22.0-30.0); Chloride 98 mmol/L (98-107); Chol/HDL Ratio 2.4 (1-3.5); Cholesterol 126 mg/dl (140-200); Estimated Glomerular Filt Rate 117 ml/min (>60); GFR (African American) 141 ML/MIN (>60); Globulin 2.4 g/dL (1.3-3.2); Glucose 80 mg/dl (74-100); HDL Cholesterol 53 mg/dl (40-60); Potassium 3.7 mmoL/L (3.5-5.1); Sodium 136 mmol/L (136-145); Total Protein,Serum 6.7 g/dl (6.3-8.2); Triglycerides 37 mg/dl (30-150); VLDL Cholesterol 7 mg/dL (0-40)
[2023-04-11 14:06] LABS: Direct LDL Cholesterol 71.56 mg/dL (100-129)
[2023-04-11 14:12] LABS: 25-OH Vitamin D, Total 57.6 ng/mL (30-100)
[2023-04-11 14:24] LABS: Thyroid Stimulating Hormone 0.73 uIU/mL (0.465-4.68)
[2023-04-11 14:44] LABS: Vitamin B12 400 pg/mL (239-931)
== END ==
PROVIDERS: PCP Physician Assistant; Visit Provider Physician Assistant
DX: R53.83 Other fatigue (principal)
CPT/HCPCS: 80053; 80061; 82306; 82607; 84443; 85025

== ENCOUNTER → 2023-05-16 17:09 | Outpatient (CLI) | payer OTHER, SELFPAY | PROVIDERS: PCP Physician Assistant; Visit Provider Physician Assistant | DX: G47.30 Sleep apnea, unspecified (principal); R06.83 Snoring; R53.83 Other fatigue | CPT/HCPCS: G0399 ==

== ENCOUNTER → 2023-05-26 13:29 | Outpatient (CLI) | payer OTHER, SELFPAY | PROVIDERS: PCP Physician Assistant; Visit Provider Physician Assistant | DX: I49.3 Ventricular premature depolarization (principal) | CPT/HCPCS: 93225; 93226 ==

== ENCOUNTER → 2023-06-20 12:00 | Outpatient (CLI) | payer OTHER, SELFPAY ==
--- NOTE | 2023-06-20 12:56 | CA_ITS ---
APPROVED REPORT EXAM: Comprehensive 2D, Doppler, and color-flow Echocardiogram Substance Abuse Technician: Dayana Bower CRT Ht: 5 ft 3 in Wt: 135lbs BSA: 1.64 BP: 100/54 mmHg Indications: arrhythmia for a few years, less than months goes to ob 07/12/23 2D Dimensions LVOT 1.91 cm (M/F) 1.5-2.5 LA Volume 30.60 mL LA Volume Index 18.20 mL/m2 (M/F) 16-34 M-Mode Dimensions RVDd 2.42 cm (0.9-2.6) LA Diam 3.35 cm (1.9-4.0) LVDd 5.07 cm (3.5-5.7) Ao Diam 3.06 cm (2.0-3.7) LVDs 2.89 cm (3.5-5.7) IVSd 1.02 cm (0.6-1.1) PWd 0.61 cm (0.6-1.1) EF (Teich) 73.90% FS 43.00% EDV (Teich) 122.10 mL TAPSE 2.38 (<1.7) ESV (Teich) 31.90 mL LV Diastology E Decel Time 240.00 (160-240 msec) E/A Ratio 1.27 MED E' 14.30 (< 7 cm/sec) MED A' 12.90 cm/s E'/MED E' Ratio 9.33 (>14) LAT E' 15.20 (<10 cm/sec) LAT A' 12.90 cm/s E/LAT E' Ratio 8.78 (>14) Aortic Valve AO Peak GR. 8.10 mmHg Mitral Valve MV A Velocity 105.00 (40-130 cm/s) E/A Ratio 1.27 MV Decel. Time 240.00 (160-240 ms) Pulmonary Valve PV Peak Velocity 124.00 (50-150 cm/s) Tricuspid Valve TR P. Velocity 281.00 cm/s RAP Estimate 10.00 mmHg RVSP 41.50 mmHg Left Ventricle The left ventricle is normal size. The left ventricular systolic function is normal. The left ventricular ejection fraction is within the normal range. There is normal left ventricular wall thickness. There is normal LV segmental wall motion. The left ventricular diastolic function is normal. LVEF is 60%. Right Ventricle The right ventricle is normal size. The right ventricular systolic function is normal. Atria The left atrium size is normal. The right atrium size is normal. No Doppler evidence of interatrial shunt. Aortic Valve The aortic valve opens well. There is no aortic valvular stenosis. No aortic regurgitation is present. Mitral Valve The mitral valve is normal in structure. No evidence of mitral valve stenosis. There is no mitral valve regurgitation noted. Tricuspid Valve The tricuspid valve leaflets are thin and pliable. Trace tricuspid regurgitation. RVSP is 25-30 mmHg. Pulmonic Valve The pulmonary valve is normal in structure. Trace pulmonic regurgitation. Great Vessels The aortic root is normal in size. IVC is normal in size and collapses >50% with inspiration. Pericardium There is no pericardial effusion. Other Information Study Quality: Adequate Conclusion Normal biventricular systolic function. No significant valvular disease. Electronically signed by : Justa Crowell, 06/20/2023 18:58:16
== END ==
PROVIDERS: PCP Nurse Practitioner Obstetrics & Gynecology; Visit Provider Nurse Practitioner
DX: R07.89 Other chest pain (principal); N92.6 Irregular menstruation, unspecified; I49.3 Ventricular premature depolarization; Z32.00 Encounter for pregnancy test, result unknown
CPT/HCPCS: 36415; 84144; 84702; 93306

== ENCOUNTER 2023-07-05 17:35 | Emergency (ER) | payer OTHER, SELFPAY ==
[2023-07-05 17:36] VITALS: BP 101/57; PULSE 83; RESP 18; TEMP 36.8; O2SAT 98; BMI 24.6
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
[2023-07-05 18:27] VITALS: BP 101/57; PULSE 83; RESP 18; TEMP 36.8; O2SAT 98
== END 2023-07-05 18:28 | disposition home or self-care (01) ==
PROVIDERS: Emergency Provider Nurse Practitioner Family; PCP Physician Assistant
DX: O26.899 Other specified pregnancy related conditions, unspecified trimester (principal); O99.519 Diseases of the respiratory system complicating pregnancy, unspecified trimester; J01.90 Acute sinusitis, unspecified; Z3A.00 Weeks of gestation of pregnancy not specified; F17.290 Nicotine dependence, other tobacco product, uncomplicated; O99.330 Smoking (tobacco) complicating pregnancy, unspecified trimester
CPT/HCPCS: 99212; 99214; G0463

== ENCOUNTER → 2023-07-12 09:52 | Outpatient (CLI) | payer OTHER, SELFPAY ==
[2023-07-12 10:38] LABS: Basophils % 0.1 % (0.1-2.0); Eosinophils % 0.3 % (0.1-12.0); Hematocrit 36.4 % (37.0-47.0); Hemoglobin 12.3 g/dL (12.2-16.2); Lymphocytes # 1.2 K/mm3 (0.7-4.5); Lymphocytes % 13.7 % (10-50); Mean Corpuscular HGB Conc 33.8 g/dL (31.8-35.4); Mean Corpuscular Hemoglobin 29.9 pg (27.0-31.2); Mean Corpuscular Volume 88.5 fl (81-99); Mean Platelet Volume 8.1 fl (7.4-10.4); Monocytes # 0.4 K/mm3 (0.1-1.0); Monocytes % 4.2 % (1.7-9.3); Neutrophils # 7.1 K/mm3 (1.8-7.8); Neutrophils % 81.6 % (37.0-80.0); Platelet Count 269 K/mm3 (142-424); Red Blood Count 4.12 M/mm3 (4.20-5.40); Red Cell Distribution Width 12.2 % (11.5-17.5); White Blood Count 8.6 K/mm3 (4.8-10.8)
[2023-07-13 08:19] LABS: Rubella Antibodies, IgG 2.03 index (Immune >0.99)
[2023-07-16 11:19] LABS: HIV Screen 4th Generation wRfx Non Reactive
[2023-07-16 11:20] LABS: Hepatitis B Surface Antigen Negative; Hepatitis C Antibody Non Reactive; Rapid Plasma Reagin Ab Titer Non Reactive
== END ==
PROVIDERS: PCP Physician Assistant; Visit Provider Nurse Practitioner Obstetrics & Gynecology
DX: Z34.91 Encounter for supervision of normal pregnancy, unspecified, first trimester (principal); Z3A.14 14 weeks gestation of pregnancy
CPT/HCPCS: 36415; 85025; 86593; 86703; 86762; 86850; 87086; 87340; 87380; G0432

== ENCOUNTER → 2023-07-12 16:48 | Outpatient (CLI) | payer OTHER, SELFPAY | PROVIDERS: Visit Provider Nurse Practitioner Obstetrics & Gynecology | DX: Z34.91 Encounter for supervision of normal pregnancy, unspecified, first trimester (principal) ==

== ENCOUNTER → 2023-07-26 12:40 | Outpatient (CLI) | payer OTHER, SELFPAY ==
--- NOTE | 2023-07-26 12:40 | US_ITS ---
PROCEDURE: US OB /MATERNAL DETAIL CLINICAL INDICATION: 20 week anatomy scan and check cervical length COMPARISON: No exams were available for comparison FINDINGS: Transabdominal sonographic images of the uterus were obtained. From her last menstrual period she is 20 weeks 4 days. Single viable intrauterine gestation. Breech position. Placenta: Anteriorplacenta grade 1. There is average amount fluid. The cervix appears shortened. Closed and measuring 2.0 cm in length. There appears to be funneling of the cervix. Complete survey performed and was unremarkable on the submitted images as in PACS. No discrete anomalies identified on survey imaging by technologist. Active fetus. Three-vessel cord with satisfactory umbilical cord insertion. 4- chamber heart noted. [place], LVOT, RVOT, three-vessel view, aortic arch appear normal. Survey of brain & ventricles Unremarkable. Choroid plexus, thalamus, cerebellum and cisterna magna appear normal. Face and neck survey unremarkable. Profile, nasion, nose and lips appear normal. Diaphragm and chest views unremarkable. Abdomen: Both kidneys noted and minimal renal pelvis dilation of 3.0 mm. Stomach and bladder noted and satisfactory. Spine: Survey of the spine satisfactory with no anomalies identified nor imaged. Upper, thoracic and lower spine appear normal. Both arms and legs noted. Amniotic Fluid: Adequate. Measurements: Average ultrasound age 22weeks 4days. Estimated due date by ultrasound age 0111/25/2023. Estimated weight 509g BPD = 23weeks 0 days HC = 22weeks 2days AC = 23weeks 1day FL = 21weeks 6days Growth Percentile= >98 Heart Rate = 142bpm Cerebellum = 21weeks 3days Humerus = 22weeks 1day HC/AC is 1.1 FL/BPD is 0.67 FL/AC is 0.2 IMPRESSION: 1. Viable fetus in the breech presentation. 2. The cervix is variable length and there was funneling. It measures between 2 cm and 3.2 cm. 3. Placenta is anterior grade 1. The fluid is within normal limits. 4. Anatomical scan was normal. 5. The dates are off by approximately 2 weeks. We will revise her due date to November 25, 2023. Dictated by: Gasper Johnson MD 07/26/2023 17:01 Gasper Johnson MD in OV 07/26/2023 17:01
== END ==
PROVIDERS: PCP Physician Assistant; Visit Provider Nurse Practitioner Obstetrics & Gynecology
DX: Z34.92 Encounter for supervision of normal pregnancy, unspecified, second trimester (principal); Z3A.20 20 weeks gestation of pregnancy
CPT/HCPCS: 76811

== ENCOUNTER 2023-08-10 18:57 | Emergency (ER) | payer OTHER, SELFPAY ==
[2023-08-10 19:38] VITALS: BP 104/56; PULSE 90; RESP 18; TEMP 36.8; O2SAT 100; BMI 26.3
[2023-08-10 22:05] VITALS: BP 90/46; PULSE 94; RESP 18; O2SAT 97
--- NOTE | 2023-08-10 22:27 | HMH.EDGENADL ---
Discharge Plan Disposition Patient Disposition: Home, Self-Care Prescriptions Prescriptions: New cephalexin 500 mg capsule 500 mg PO Q6H 7 Days Qty: 28 0RF No Action Classic 28 mg iron- 800 mcg tablet 1 tab PO DAILY aspirin 81 mg Tablet 81 mg PO DAILY progesterone micronized [Prometrium] 200 mg capsule 200 mg PO DAILY Referrals Follow up/Referrals: Koki Barajas PA [Primary Care Provider] - See instructions Activity Restrictions/Add. Instructions Additional Instructions/Restrictions: At this time is felt you are safe to be discharged home. If new or worsening symptoms please do not hesitate to return the emergency department. Please take antibiotics as prescribed and follow-up with podiatry tomorrow morning as discussed. Clinical Impressions Clinical Impression: [place]'s gland inflammation, Cellulitis Instructions Patient Instructions: DI for Skin Abscess Discharge ED Provider: Percy Bailey General Adult HPI General Chief complaint: Skin/Abscess/Foreign Body Stated complaint: Hot flashes, Boil on Vag Time Seen by Provider: 08/10/23 20:30 Mode of Arrival: Ambulatory Source of Information: Patient Limitations: No Limitations Description of Symptoms (Recalled from ER Triage Doc. by RN): Patient states that she popped an ingrown hair on her vaginia last night and it broke the skin. Patinet that her vaginia is now swollen and sore. History of Present Illness HPI narrative: Patient is a 32-year-old female currently 24 weeks who presents emergency department for evaluation of pain and swelling on her vagina. Onset was acute, occurring this morning on the right side of her vagina she felt a swelling when she attempted to pop however it popped inward . Over the course of the day she has had pain and swelling of the right side of her external vagina. No vaginal discharge, no vaginal bleeding. No other acute complaints at this time. Related Data Home Medications Medication Instructions Recorded Confirmed vits no.126-ferrous fum 1 tab PO DAILY pregant 07/12/23 08/10/23 28 mg iron-folic acid 800 mcg tablet (Classic ) aspirin 81 mg tablet 81 mg PO DAILY inflamation 08/10/23 08/10/23 progesterone micronized 200 mg 200 mg PO DAILY per 08/10/23 08/10/23 capsule (Prometrium) Previous Rx's Medication Instructions Recorded cephalexin 500 mg capsule 500 mg PO Q6H 7 days #28 caps 08/10/23 Allergies Allergy/AdvReac Type Severity Reaction Status Date / Time No Known Allergies Allergy Verified 07/12/23 09:06 [facility] Disclaimer: The information contained in this section may have been updated after the patient was seen, as this information can be updated by other users. 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 (Updated 08/10/23 @ 22:33 by Percy Bailey MD) Acne Depression Dilation of renal pelvis of fetus Irregular heart rate Late care affecting Major depressive disorder Posttraumatic stress disorder Surgical History H/O dilation and curettage History of surgery on upper extremity Family History Father Alcoholism Substance abuse FHx: mental illness anger; attempted suicide Grandfather Hypertension Hyperlipidemia Grandmother Hypertension 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 Smoking Status: Current every day smoker tobacco type: e-cigarettes second hand exposure: No alcohol intake: current counseling given: No substance use type: former substance user, marijuana and opiates current occupational status: unemployed Travel in the last 8 weeks: None adopted: No caregiver/support person: Yes (for her kids; they are 6 and 7 years old) foster care: No household members: children housing: house lives independently: Yes marital status: single
--- NOTE | 2023-08-10 22:31 | PC.NURSE ---
HEART TONES 157 AT THIS TIME.
[2023-08-10 22:40] VITALS: BP 108/58; PULSE 82; RESP 20; TEMP 37.2; O2SAT 98
== END 2023-08-10 22:41 | disposition home or self-care (01) ==
PROVIDERS: Emergency Provider Emergency Medicine; PCP Physician Assistant
DX: O23.92 Unspecified genitourinary tract infection in pregnancy, second trimester (principal); O99.342 Other mental disorders complicating pregnancy, second trimester; O99.332 Smoking (tobacco) complicating pregnancy, second trimester; N36.8 Other specified disorders of urethra; F32.9 Major depressive disorder, single episode, unspecified; F43.10 Post-traumatic stress disorder, unspecified; F17.290 Nicotine dependence, other tobacco product, uncomplicated; Z3A.24 24 weeks gestation of pregnancy
CPT/HCPCS: 99283

== ENCOUNTER 2023-08-12 15:05 | Emergency (ER) | payer OTHER, SELFPAY ==
[2023-08-12 15:06] VITALS: BP 112/56; PULSE 85; RESP 17; TEMP 36.7; O2SAT 97; BMI 26.3
--- NOTE | 2023-08-12 15:33 | PC.NURSE ---
checked on pt in lobby advised we would be with her as soon as possible
--- NOTE | 2023-08-12 16:25 | PC.NURSE ---
RN AT BEDSIDE WITH DR BAIRD FOR VAGINAL/LABIAL EXAM
[2023-08-12 16:30] VITALS: BP 107/61; PULSE 84; RESP 18; O2SAT 100
--- NOTE | 2023-08-12 16:39 | PC.NURSE ---
DR BAIRD SPEAKING WITH DR MUÑOZ
--- NOTE | 2023-08-12 16:47 | PC.NURSE ---
Dr. Boggs at bedside
[2023-08-12 17:38] LABS: Microscopic, Urine URINE MICROSCOPIC (MICROSCOPIC)
[2023-08-12 17:39] LABS: Appearance,Urine CLEAR (Clear); Bilirubin,Urine Negative (Negative); Blood, Urine Negative (Negative); Color,Urine YELLOW (Yellow); Glucose,Urine (UA) Negative (Negative); Ketones,Urine Negative (Negative); Leukocyte Esterase,Urine 1+ (Negative); Nitrate,Urine Negative (Negative); PH,Urine 7.5 (5.0-8.5); Protein,Urine Negative (Negative); Urobilinogen,Urine 0.2 EU/dl (0.2)
[2023-08-12 17:56] LABS: Bacteria,Urine 1+ /lpf
[2023-08-12 18:09] VITALS: BP 122/79; PULSE 88; RESP 17; TEMP 36.8; O2SAT 99
--- NOTE | 2023-08-13 19:17 | HMH.EDGENADL ---
Discharge Plan Disposition Patient Disposition: Home, Self-Care Condition: Good Prescriptions Prescriptions: New sulfamethoxazole-trimethoprim [Bactrim] 400-80 mg tablet 1 tab PO BID 7 Days Qty: 14 0RF Discontinued cephalexin 500 mg capsule 500 mg PO Q6H 7 Days Qty: 28 0RF No Action Classic 28 mg iron- 800 mcg tablet 1 tab PO DAILY aspirin 81 mg Tablet 81 mg PO DAILY progesterone micronized [Prometrium] 200 mg capsule 200 mg PO DAILY Referrals Follow up/Referrals: Koki Barajas PA [Primary Care Provider] - See instructions Activity Restrictions/Add. Instructions Additional Instructions/Restrictions: Please follow-up on Monday with the OB doctors. Please return with any new or worsening symptoms. I have changed your antibiotics after discussion with the OB doctors. Clinical Impressions Clinical Impression: Abscess Instructions Patient Instructions: DI for Urinary Tract Infection (UTI), DI for Urinary Tract Infection in Children Discharge ED Provider: Jam Boggs Adult HPI General Chief complaint: Urogenital-Female Stated complaint: female pain Time Seen by Provider: 08/12/23 16:12 Mode of Arrival: Family Vehicle Source of Information: Patient and Medical Record Limitations: No Limitations Description of Symptoms (Recalled from ER Triage Doc. by RN): Pt c/o braulio gland infection . She was seen here on by Dr. Bailey and given Keflex, however she feels there is more swelling, pain, and tenderness to her genitals than before. OBGYN is Dr. Johnson. Denies fever. History of Present Illness HPI narrative: Patient presents for evaluation of gradual in onset swelling and pain of right labia majora, in the setting of approximately 24 weeks gestational with no associated vaginal bleeding, fevers, chills, pain is described as severe and nonradiating, previous therapies include 1 day of Keflex prescribed by previous provider, no associated injury, no pain elsewhere, symptoms were gradual in onset starting several days ago, constant, stable in course, has not had similar symptoms before. No precipitating trauma. No urinary symptoms. Related Data Home Medications Medication Instructions Recorded Confirmed vits no.126-ferrous fum 1 tab PO DAILY pregant 07/12/23 08/10/23 28 mg iron-folic acid 800 mcg tablet (Classic ) aspirin 81 mg tablet 81 mg PO DAILY inflamation 08/10/23 08/10/23 progesterone micronized 200 mg 200 mg PO DAILY per 08/10/23 08/10/23 capsule (Prometrium) Previous Rx's Medication Instructions Recorded sulfamethoxazole 400 1 tab PO BID 7 days #14 tabs 08/12/23 mg-trimethoprim 80 mg tablet (Bactrim) Allergies Allergy/AdvReac Type Severity Reaction Status Date / Time No Known Allergies Allergy Verified 07/12/23 09:06 [facility] Disclaimer: The information contained in this section may have been updated after the patient was seen, as this information can be updated by other users. 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 (Updated 08/12/23 @ 18:06 by Jam Boggs MD) Acne Depression Dilation of renal pelvis of fetus Irregular heart rate Late care affecting Major depressive disorder Posttraumatic stress disorder Surgical History H/O dilation and curettage History of surgery on upper extremity Family History Father Alcoholism Substance abuse FHx: mental illness anger; attempted suicide Grandfather Hypertension Hyperlipidemia Grandmother Hypertension 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 Smoking Status: Current every day smoker tobacco type: e-cigarettes second hand exposure: No alcohol intake: current counseling given: No substance use type: former substance user, marijuana and opiates current occupational status:
--- NOTE | 2023-08-16 10:41 | PC.NURSE ---
dr. caraballo is ER MD on shift at this time notified him of pt preliminary wound culture results-gram positive cocci, pt d/c from ER on Bactrim bid x7 days states no medications need to be changed at this time.
--- NOTE | 2023-08-22 16:38 | PC.NURSE ---
Reviewed pt positive wound culture with Dr. Murray. He reported the patient would need to be prescribed keflex for better coverage at this time. spoke with patient who stated her wound looks better and believes she doesnt need it. this nurse educated on the importance of taking the new antibiotic prevent return of infection. pt verbalized understanding.
== END 2023-08-12 18:09 | disposition home or self-care (01) ==
PROVIDERS: Emergency Provider Emergency Medicine; PCP Physician Assistant
DX: O26.892 Other specified pregnancy related conditions, second trimester (principal); O34.62 Maternal care for abnormality of vagina, second trimester; Z3A.24 24 weeks gestation of pregnancy; F33.9 Major depressive disorder, recurrent, unspecified; F43.10 Post-traumatic stress disorder, unspecified
CPT/HCPCS: 56405; 81001; 87070; 87086; 87186; 87205; 96374; 96375; 99284

== ENCOUNTER → 2023-08-28 11:25 | Outpatient (CLI) | payer OTHER, SELFPAY ==
[2023-08-28 11:44] LABS: Basophils % 0.3 % (0.1-2.0); Eosinophils % 0.4 % (0.1-12.0); Hematocrit 35.8 % (37.0-47.0); Hemoglobin 12.3 g/dL (12.2-16.2); Lymphocytes # 1.1 K/mm3 (0.7-4.5); Lymphocytes % 11.7 % (10-50); Mean Corpuscular HGB Conc 34.3 g/dL (31.8-35.4); Mean Corpuscular Hemoglobin 30.6 pg (27.0-31.2); Mean Corpuscular Volume 89.4 fl (81-99); Mean Platelet Volume 8.5 fl (7.4-10.4); Monocytes # 0.4 K/mm3 (0.1-1.0); Monocytes % 3.8 % (1.7-9.3); Neutrophils % 83.9 % (37.0-80.0); Platelet Count 278 K/mm3 (142-424); Red Blood Count 4.01 M/mm3 (4.20-5.40); Red Cell Distribution Width 13.4 % (11.5-17.5); White Blood Count 9.6 K/mm3 (4.8-10.8)
[2023-08-28 12:17] LABS: Glucose,Fasting 86 mg/dl (74-100)
[2023-08-28 14:28] LABS: Glucose 1 Hour 111 mg/dL (74-100)
== END ==
PROVIDERS: PCP Physician Assistant; Visit Provider Nurse Practitioner Obstetrics & Gynecology
DX: Z34.92 Encounter for supervision of normal pregnancy, unspecified, second trimester (principal); Z3A.27 27 weeks gestation of pregnancy
CPT/HCPCS: 36415; 82951; 85025

== ENCOUNTER → 2023-10-10 12:41 | Outpatient (CLI) | payer OTHER, SELFPAY ==
--- NOTE | 2023-10-10 12:41 | US_ITS ---
PROCEDURE: US OB BIOPHYSICAL PROFILE CLINICAL INDICATION: check cervical length, hx of labor and sga COMPARISON: Anatomy scan 07/26/2023 FINDINGS: Transabdominal sonographic images of the uterus were obtained. From her established due date she is 33weeks 3days. The following parameters are obtained: Viable fetus in the cephalic presentation with an anterior placenta grade 1. Average ultrasound age is 34weeks 0 days. Estimated due date by ultrasound is 11/21/2023. Estimated weight is 4lb 13.17oz. Transvaginally the cervix is 1.7 cm in length. heart rate: 146bpm bpm. BPD: 33weeks 4days OFD: 33weeks 4days HC: 34 weeks 1 day AC: 33 weeks 2 days FL: 33 weeks 0 days HC/AC: 1.05 Cephalic index: 0.83 FL/BPD: 0.73 FL/AC: 0.22 41 percentile Amniotic fluid index: 12.53cm MVP 4.9 cm. Qualitative AFV: 2 breathing movements: 2 Gross body movements: 2 Tone: 2 Biophysical profile score: 8 No obvious anomalies evident.Kidneys, profile, nasion, stomach, bladder, four-chamber heart, three-vessel cord appear normal. There is still mild bilateral renal pyelectasis at 7.3 mm and 5.6 mm. IMPRESSION: 1. Viable fetus in the cephalic presentation with an anterior placenta grade 1. 2. The fluid is within normal limits with an amniotic fluid index of 12.53 cm. MVP 4.9 cm. 3. There is still mild bilateral renal pyelectasis. 4. There has been good interval growth with the fetus currently 41st percentile. 5. Biophysical profile 8/8 with good breathing movement seen and good movement seen. 6. The cervix is shortened on transvaginal view to 1.67 cm. Physician was notified of the shortened cervix. Dictated by: Gasper Johnson MD 10/10/2023 17:04 Gasper Johnson MD in OV 10/10/2023 17:04
== END ==
PROVIDERS: PCP Physician Assistant; Visit Provider Nurse Practitioner Obstetrics & Gynecology
DX: O36.5930 Maternal care for other known or suspected poor fetal growth, third trimester, not applicable or unspecified (principal); Z3A.33 33 weeks gestation of pregnancy; Z87.51 Personal history of pre-term labor
CPT/HCPCS: 76816; 76819

== ENCOUNTER 2023-10-14 14:22 | Outpatient (CLI) | payer OTHER, SELFPAY ==
[2023-10-14 14:30] VITALS: BP 112/65; PULSE 61; RESP 16; TEMP 36.7; O2SAT 100; BMI 28.5
== END 2023-10-14 15:00 | disposition home or self-care (01) ==
LOC: OBOUT 14:25 → OB 14:25
PROVIDERS: PCP Physician Assistant; Referring Provider Nurse Practitioner Obstetrics & Gynecology; Visit Provider Obstetrics & Gynecology
DX: O36.8130 Decreased fetal movements, third trimester, not applicable or unspecified (principal); Z3A.34 34 weeks gestation of pregnancy
CPT/HCPCS: 59025

== ENCOUNTER 2023-10-16 14:15 | Outpatient (CLI) | payer OTHER, SELFPAY | END 2023-10-16 14:46 | disposition home or self-care (01) | LOC: OBOUT 14:17 → OB 14:18 | PROVIDERS: PCP Physician Assistant; Visit Provider Nurse Practitioner Obstetrics & Gynecology | DX: O26.893 Other specified pregnancy related conditions, third trimester (principal); Z3A.34 34 weeks gestation of pregnancy | CPT/HCPCS: 96372 ==

== ENCOUNTER 2023-10-17 14:19 | Outpatient (CLI) | payer OTHER, SELFPAY ==
[2023-10-17 14:44] VITALS: BP 115/66; PULSE 103; RESP 18; TEMP 36.5; O2SAT 98; BMI 29.4
== END 2023-10-17 15:12 | disposition home or self-care (01) ==
LOC: OBOUT 14:21 → OB 14:22
PROVIDERS: PCP Physician Assistant; Visit Provider Nurse Practitioner Obstetrics & Gynecology
DX: O26.893 Other specified pregnancy related conditions, third trimester (principal); Z3A.34 34 weeks gestation of pregnancy
CPT/HCPCS: 59025; 96372; G0463

== ENCOUNTER → 2023-10-24 16:40 | Outpatient (CLI) | payer OTHER, SELFPAY | PROVIDERS: PCP Physician Assistant; Visit Provider Obstetrics & Gynecology | DX: Z34.93 Encounter for supervision of normal pregnancy, unspecified, third trimester (principal); Z3A.35 35 weeks gestation of pregnancy | CPT/HCPCS: 86403 ==

== ENCOUNTER 2023-10-31 14:40 | Outpatient (CLI) | payer OTHER, SELFPAY ==
[2023-10-31 15:00] VITALS: BP 106/74; PULSE 75; RESP 18; TEMP 36.8; O2SAT 98; BMI 30.3
[2023-10-31 15:22] VITALS: BMI 30.3
[2023-10-31 15:30] LABS: Microscopic, Urine URINE MICROSCOPIC (MICROSCOPIC)
[2023-10-31 15:35] LABS: Appearance,Urine CLEAR (Clear); Bilirubin,Urine Negative (Negative); Blood, Urine 3+ (Negative); Color,Urine YELLOW (Yellow); Glucose,Urine (UA) Negative (Negative); Ketones,Urine Negative (Negative); Leukocyte Esterase,Urine TRACE (Negative); Nitrate,Urine Negative (Negative); Protein,Urine Negative (Negative); Specific Gravity, Urine <= 1.005 (1.005-1.030); Urobilinogen,Urine 0.2 EU/dl (0.2)
[2023-10-31 15:43] LABS: Fetal Membrane Rupture (Rapid) Negative (Negative)
[2023-10-31 16:04] LABS: Bacteria,Urine Trace /lpf; WBC,Urine Occasional #/hpf (0-3)
== END 2023-10-31 16:12 | disposition home or self-care (01) ==
LOC: OBOUT 14:42 → OB 14:43
PROVIDERS: PCP Physician Assistant; Visit Provider Obstetrics & Gynecology
DX: O26.893 Other specified pregnancy related conditions, third trimester (principal); Z3A.36 36 weeks gestation of pregnancy
CPT/HCPCS: 59025; 81001; 84112; G0463

== ENCOUNTER 2023-11-09 12:41 | Inpatient (IN) | payer OTHER, SELFPAY ==
[2023-11-09 13:01] VITALS: BMI 30.3
[2023-11-09 13:06] LABS: Fetal Membrane Rupture (Rapid) Positive (Negative)
[2023-11-09 13:12] LABS: Microscopic, Urine URINE MICROSCOPIC (MICROSCOPIC)
--- NOTE | 2023-11-09 13:14 | HMH.PHAINT1 ---
Pharmacy Intervention Comments: MEDICATION RECONCILIATION COMPLETE USING EXTERNAL PHARMACY FILL HISTORY AND MOST RECENT OB OFFICE VISIT NOTE.
[2023-11-09 13:26] LABS: Basophils % 0.4 % (0.1-2.0); Eosinophils % 0.2 % (0.1-12.0); Hematocrit 36.9 % (37.0-47.0); Hemoglobin 13.3 g/dL (12.2-16.2); Lymphocytes # 1.2 K/mm3 (0.7-4.5); Lymphocytes % 14.2 % (10-50); Mean Corpuscular HGB Conc 35.9 g/dL (31.8-35.4); Mean Corpuscular Hemoglobin 32.1 pg (27.0-31.2); Mean Corpuscular Volume 89.6 fl (81-99); Mean Platelet Volume 9.1 fl (7.4-10.4); Monocytes # 0.4 K/mm3 (0.1-1.0); Monocytes % 5.1 % (1.7-9.3); Neutrophils # 6.7 K/mm3 (1.8-7.8); Neutrophils % 80.1 % (37.0-80.0); Platelet Count 218 K/mm3 (142-424); Red Blood Count 4.12 M/mm3 (4.20-5.40); Red Cell Distribution Width 13.2 % (11.5-17.5); White Blood Count 8.4 K/mm3 (4.8-10.8)
[2023-11-09 13:28] LABS: Appearance,Urine CLEAR (Clear); Bilirubin,Urine Negative (Negative); Blood, Urine TRACE-I (Negative); Color,Urine YELLOW (Yellow); Glucose,Urine (UA) Negative (Negative); Ketones,Urine Negative (Negative); Leukocyte Esterase,Urine TRACE (Negative); Nitrate,Urine Negative (Negative); PH,Urine 7.5 (5.0-8.5); Protein,Urine 2+ (Negative); Urobilinogen,Urine 0.2 EU/dl (0.2)
[2023-11-09 13:43] LABS: Amphetamine/Metha Screen,Urine Negative ng/ml (<1000); Benzodiazepines Screen,Urine Negative ng/ml (<200)
[2023-11-09 13:44] LABS: Methadone Screen,Urine Negative ng/ml (<300)
[2023-11-09 13:45] LABS: Cannabinoid Screen,Urine Negative ng/ml (<50); Cocaine Screen,Urine Negative ng/ml (<300)
[2023-11-09 13:46] LABS: Opiate Screen,Urine Negative ng/ml (<300)
[2023-11-09 13:47] LABS: Phencyclidine Screen,Urine Negative ng/ml (<25)
[2023-11-09 13:49] LABS: Barbiturates Screen,Urine Negative ng/ml (<200)
[2023-11-09 14:01] LABS: Bacteria,Urine 2+ /lpf; Squamous Epithelial Cell,Urine 50-100 #/hpf (0-5)
[2023-11-09] MEDS: NICOTINE 21MG/24HR PATCH 21 MG TD (14:46)
[2023-11-09] MEDS: DEXTROSE 5%-LACTATED RINGERS 1,000 ML 125 ML IV (14:46)
[2023-11-09 15:18] VITALS: BP 119/78; PULSE 107; RESP 18; TEMP 36.7; O2SAT 97; BMI 30.3
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
[2023-11-09] MEDS: LACTATED RINGERS 1000ML 1,000 ML 500 ML IV (17:01)
[2023-11-09] MEDS: OXYTOCIN/RINGERS LACTATE 30 UNITS/500 ML BAG IV (17:01)
[2023-11-09 18:15] VITALS: BP 111/68; PULSE 83; RESP 18; TEMP 36.7; O2SAT 99
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
[2023-11-09] MEDS: OXYTOCIN/RINGERS LACTATE 30 UNITS/500 ML BAG 999 UNITS IV (23:13)
[2023-11-09] MEDS: OXYTOCIN/RINGERS LACTATE 30 UNITS/500 ML BAG 40 UNITS IV (23:20)
--- NOTE | 2023-11-09 23:38 | EXP.DN ---
Delivery Note Delivery Date:: 11/09/23 Delivery Time:: 23:05 Anesthesia Type: Epidural Was labor medically induced?: No Gestational age (weeks): 37 delivered prior to 39 weeks?: Yes Justification for early elective delivery:: Premature ROM Gender: Male at 1 minute: 8 at 5 minutes: 9 Delivery Procedure:: Preoperative diagnosis: 1. -0-1-4 at 37 completed this weeks gestation, vertex 2. Rh positive 3. GBS negative 4. Premature rupture of membranes 5. History of delivery 6. Shortened cervix with this Postoperative diagnosis: 1. -0-1-4 at 37 completed this weeks gestation, vertex 2. Rh positive 3. GBS negative 4. Premature rupture of membranes 5. History of delivery 6. Shortened cervix with this EBL: 100mL Specimen: 1. Cord blood 2. Arterial and venous cord gases Findings: 1. Liveborn viable male : Rasheed. Apgars 8/9 at 1 and 5 minutes respectively. Weight pending at time of dictation Complications: None Procedure: Nonoperative spontaneous delivery Corrine presented to labor and delivery today grossly ruptured, clear fluid, with advanced dilation at 37 weeks and 5 days gestation. Please see HPI for full details. She was admitted and monitored for several hours. She was noted to not make any further progress and Pitocin was started for labor augmentation. She received an epidural for anesthesia. She progressed to complete. The infant was noted to be in LEYDA position. With effective maternal pushing there was a nonoperative spontaneous vaginal delivery. There was no nuchal cord. The anterior right shoulder delivered, followed by the posterior shoulder without dystocia. The body and lower extremities delivered without difficulty. The infant was bulb suctioned and was crying immediately following delivery. The infant was placed on the maternal abdomen and greater than one minute was appreciated for delayed cord clamping. The umbilical cord was doubly clamped and cut. Cord blood and cord gases were collected and sent for routine testing. The placenta delivered with cord traction and suprapubic contertraction. Pitocin was started and the placenta and cord were inspected. The placenta was noted to be intact, with a 3 vessel cord. The uterus was firm and bleeding was minimal. The perineum, vaginal tucker, cervix, and paraurethral area were inspected thoroughly and noted to be free of laceration. The patient tolerated the delivery well. All counts were correct by nursing. Mother and were doing well and bonding upon my leaving the delivery room. Placental Delivery Description: Spontaneous
[2023-11-09 23:39] LABS: Cord Blood PH 7.46 (7.35-7.45)
[2023-11-09 23:40] LABS: Cord Blood PH 7.37 (7.35-7.45)
[2023-11-10] MEDS: IBUPROFEN 400 MG TABLET 800 MG PO ×3 (05:03→21:01)
[2023-11-10 06:51] LABS: Basophils % 0.2 % (0.1-2.0); Eosinophils % 0.4 % (0.1-12.0); Hematocrit 33.8 % (37.0-47.0); Hemoglobin 12.1 g/dL (12.2-16.2); Lymphocytes # 1.6 K/mm3 (0.7-4.5); Lymphocytes % 15.5 % (10-50); Mean Corpuscular HGB Conc 35.8 g/dL (31.8-35.4); Mean Corpuscular Hemoglobin 31.6 pg (27.0-31.2); Mean Corpuscular Volume 88.3 fl (81-99); Mean Platelet Volume 8.6 fl (7.4-10.4); Monocytes # 0.7 K/mm3 (0.1-1.0); Monocytes % 6.5 % (1.7-9.3); Neutrophils # 7.8 K/mm3 (1.8-7.8); Neutrophils % 77.4 % (37.0-80.0); Platelet Count 222 K/mm3 (142-424); Red Blood Count 3.83 M/mm3 (4.20-5.40); Red Cell Distribution Width 13.2 % (11.5-17.5)
--- NOTE | 2023-11-10 08:36 | EXP.ACUTE.PN ---
Subjective *Date: 11/10/23 *Time: 08:36 Interval history: PPD # 1 s/p Patient resting comfortably in bed. Pain controlled. Lochia appropriate. Formula feeding. Voiding without difficulty and passing flatus. Tolerating regular diet. No fever/chills, chest pain or shortness of breath. No headaches, lightheadedness/dizziness. Ambulating well ad adarsh. Medical Exam Vital signs and Labs for Last 24 Hours: Vital Signs Temp Pulse Resp BP Pulse Ox O2 Del Method 11/09/23 18:15 98.1 F 83 18 111/68 99 Room Air 11/09/23 15:18 98.1 F 107 H 18 119/78 97 Room Air Laboratory Results - last 24 hr 11/09/23 12:35: Urine Color Yellow, Urine Appearance Clear, Urine pH 7.5, Ur Specific [place] 1.020, Urine Protein 2+, Urine Glucose (UA) Negative, Urine Ketones Negative, Urine Blood Trace-i, Urine Nitrate Negative, Urine Bilirubin Negative, Urine Urobilinogen 0.2, Ur Leukocyte Esterase Trace, Urine RBC 3-5, Urine WBC 10-20, Ur Squamous Epith Cells 50-100, Urine Bacteria 2+, Membrane Rupture Positive A, Urine Opiates Screen Negative, Urine Methadone Screen Negative, Ur Barbituates Screen Negative, Ur Phencyclidine Scrn Negative, Ur Amphetamines Screen Negative, U Benzodiazepines Scrn Negative, Urine Cocaine Screen Negative, U Marijuana (THC) Screen Negative 11/09/23 13:18: WBC 8.4, RBC 4.12 L, Hgb 13.3, Hct 36.9 L, MCV 89.6, MCH 32.1 H, MCHC 35.9 H, RDW 13.2, Plt Count 218, MPV 9.1, Neut % (Auto) 80.1 H, Lymph % (Auto) 14.2, [place] % (Auto) 5.1, Eos % (Auto) 0.2, Baso % (Auto) 0.4, Neut # (Auto) 6.7, Lymph # (Auto) 1.2, [place] # (Auto) 0.4, Eos # (Auto) 0.0, Baso # (Auto) 0.0, Blood Type O Positive, Antibody Screen Negative 11/09/23 23:33: Cord ABG pH 7.37 11/09/23 23:35: Cord ABG pH 7.46 H 11/10/23 06:31: WBC 10.0, RBC 3.83 L, Hgb 12.1 L, Hct 33.8 L, MCV 88.3, MCH 31.6 H, MCHC 35.8 H, RDW 13.2, Plt Count 222, MPV 8.6, Neut % (Auto) 77.4, Lymph % (Auto) 15.5, [place] % (Auto) 6.5, Eos % (Auto) 0.4, Baso % (Auto) 0.2, Neut # (Auto) 7.8, Lymph # (Auto) 1.6, [place] # (Auto) 0.7, Eos # (Auto) 0.0, Baso # (Auto) 0.0 I & O for Labs for Last 24 Hours: Intake & Output 11/07/23 11/08/23 11/09/23 11/10/23 23:59 23:59 23:59 23:59 Weight 166 lb Head: Present atraumatic and normocephalic Neck: Present full ROM Respiratory: Present CTA bilaterally and normal respiratory effort Cardiac: Present Reg Rate and Rhythm GI: Present soft; Absent distention or tenderness Comments:: Uterine fundus firm and below umbilicus Rectal (female): Present deferred (female): Present deferred Extremities: Present full ROM; Absent edema or calf tenderness Neuro: Present alert, awake, oriented x 3 and moves all extremities Assessment and Plan *Assessment and plan (1) Status post vaginal delivery: Status: Acute Category: Surgical (2) delivery: Status: Acute Category: Medical Code(s): O60.10X0 - labor with delivery, unspecified trimester, not applicable or unspecified (3) Premature rupture of membranes: Status: Acute Category: Medical Code(s): O42.90 - Premature rupture of membranes, unspecified as to length of time between rupture and onset of labor, unspecified weeks of gestation (4) Late care affecting : Status: Acute Category: Medical Code(s): O09.30 - Supervision of with insufficient care, unspecified trimester (5) History of delivery, currently : Status: Acute Category: Medical Code(s): O09.899 - Supervision of other high risk pregnancies, unspecified trimester (6) Dilation of renal pelvis of fetus: Problem Comment: Bilateral Status: Acute Category: Medical Plan Continue routine care Encouraged increased ambulation Plan d/c home PPD # 2 or PPD # 3
[2023-11-10] MEDS: ASPIRIN EC 81MG TABLET 81 MG PO (11:01)
[2023-11-10] MEDS: FERROUS SULFATE 325MG TABLET 325 MG PO (11:02)
[2023-11-10] MEDS: ACETAMINOPHEN 500MG TAB 1000 MG PO (11:06)
[2023-11-10] MEDS: NICOTINE 21MG/24HR PATCH 21 MG TD (16:23)
[2023-11-10] MEDS: PRENATAL MULTIVITAMIN W/IRON 1 EACH PO (16:27)
[2023-11-11] MEDS: IBUPROFEN 400 MG TABLET 800 MG PO (04:49)
[2023-11-11] MEDS: ACETAMINOPHEN 500MG TAB 1000 MG PO (04:49)
[2023-11-11 08:14] VITALS: BP 103/57; PULSE 78; RESP 18; TEMP 36.7; O2SAT 97
[2023-11-11] MEDS: ASPIRIN EC 81MG TABLET 81 MG PO (08:15)
[2023-11-11] MEDS: FERROUS SULFATE 325MG TABLET 325 MG PO (08:15)
--- NOTE | 2023-11-11 11:23 | EXP.DC.SUM ---
General Admission date:: 11/09/23 Discharge date: 11/11/23 HPI HPI HPI: PPD # 2 s/p Feeling well. Pain controlled. Formula feeding. Light lochia. Voiding without difficulty and passing flatus. Tolerating regular diet. No fever/chills, chest pain or shortness of breath. No headaches, vision changes, lightheadedness/dizziness. Trace lower extremity edema. Ambulating well adl ib. Hospital Course Hospital Course Hospital Course: Ms Corrine Vogel is a 33-year-old at 37w5d admitted to [facility] Labor and Delivery premature rupture of membranes. She was having very irregular contractions. care was by Dr. Johnson and it was complicated by shortened cervix, history of delivery, and bilateral renal pyelectasis that have improved. The patient received steroids for lung maturity at 34 weeks gestation. GBS negative. She had a spontaneous vaginal delivery on 11/09/23 at 2305. She delivered a live male baby, Rasheed, 7 lb 14 oz. APGARs 8 (1 min), 9 (5 min). EBL 100 mL. She did well . Pain controlled. Formula feeding. Light lochia. Voiding without difficulty and passing flatus. Tolerating regular diet. No fever/chills, chest pain or shortness of breath. No headaches, vision changes, lightheadedness/dizziness. Vital signs stable, afebrile. Heart regular rate and rhythm. Lungs clear to auscultation. Trace lower extremity edema. No calf tenderness to palpation. Ambulating well ad adarsh. She was discharged home on PPD # 2. Normal hospital course. Exam Data for Last 24 hours Vital signs and Labs for Last 24 Hours: Temp Pulse Resp BP Pulse Ox O2 Del Method 98.1 F 78 18 103/57 L 97 Room Air 11/11/23 08:14 11/11/23 08:14 11/11/23 08:14 11/11/23 08:14 11/11/23 08:14 11/11/23 08:14 I & O for Last 24 hours: Intake & Output 11/08/23 11/09/23 11/10/23 11/11/23 23:59 23:59 23:59 23:59 Weight 166 lb Constitutional Constitutional: no acute distress and cooperative *Routine HEENT Exam Head: Present normocephalic and atraumatic Eye: Absent conjunctivae pink ENT: Present mucous membranes moist *Routine Neck Exam Neck: Present full ROM *Routine Respiratory Exam Respiratory: Present CTA bilaterally and normal respiratory effort *Routine Cardiovascular Exam Cardiovascular: Present RRR *Routine Abdominal Exam Abdominal: Present soft; Absent tenderness or distended Comments: Uterine fundus firm and below umbilicus *Routine Rectal Exam Patient deferred: visual exam *Routine Exam Patient deferred: external exam *Routine Extremities Exam Extremities: Present edema (Trace bilateral lower extremity edema) and full ROM; Absent calf tenderness *Routine Neurological Exam Neurological: Present alert, oriented X3 and moving all extremities Routine Psychiatric Exam Psychiatric: Present normal affect and cooperative DS: Diagnosis Discharge Diagnosis (1) Status post vaginal delivery: Status: Acute (2) delivery: Status: Acute Code(s): O60.10X0 - labor with delivery, unspecified trimester, not applicable or unspecified (3) Premature rupture of membranes: Status: Acute Code(s): O42.90 - Premature rupture of membranes, unspecified as to length of time between rupture and onset of labor, unspecified weeks of gestation (4) Late care affecting : Status: Acute Code(s): O09.30 - Supervision of with insufficient care, unspecified trimester (5) History of delivery, currently : Status: Acute Code(s): O09.899 - Supervision of other high risk pregnancies, unspecified trimester (6) Dilation of renal pelvis of fetus: Status: Acute Problem details: Bilateral Meds Home Medications and Allergies Home Medications Medication Instructions Recorded Confirmed Type aspirin 81 mg tablet 81 mg PO DAILY [facility] 08/10/23 11/09/23 History ferrous sulfate 325 mg (65 mg 325 mg PO DAILY Supplement 11/09/23 11/09/23 History iron) tablet vits no.126-ferrous fum 1 tab PO DAILY Supplement 11/09/23 11/09/23 History 28 mg iron-folic acid 800 mcg tablet (Classic ) New Prescriptions to Start Prescriptions: Allergies Allergy/AdvReac Type Severity Reaction Status Date / Time No Known Allergies Allergy Verified 11/07/23 13:17 Discharge Plan Disposition Patient Disposition: Home, Self-Care Condition: Good Discharge Order Discharge Orders: Discharge Order (Routine); Ordered 11/11/23 Ordered By: Margarita Escamilla Follow up Plan Follow up with: Nahomy Delgado DO [Staff Physician] - Enter time for follow up (Call the Office on Monday for a 2 week follow-up ) Prescriptions/Medication Reconciliation: Continued aspirin 81 mg Tablet 81 mg PO DAILY ferrous sulfate 325 mg (65 mg iron) tablet 325 mg PO DAILY Classic 28 mg iron- 800 mcg tablet 1 tab PO DAILY Problem Reconciliation Problems Reviewed?: Yes Patient Discharge Instructions ACTIVITY: Limited activity DIET: continue same diet and regular diet Additional Instructions: Discharge: 1. Take 800 mg Ibuprofen every 8 hours as needed for pain. You can also take 500-1000 mg of Tylenol in between doses, every 6-8 hours. 2. Nothing in the vagina for 6 weeks - no intercourse, douching or tampons. No tub baths/hot tubs or swimming pools 3. Reasons to return to L&D or call On-Call doctor - fever (greater than 100.4) - heavy vaginal bleeding (soaking through 1 pad in less than 2 hours) - vaginal discharge (malodorous and/or purulent) - severe headaches not resolved by medication or rest and leg tenderness/edema 4. depression/blues - Normal to feel anxious/overwhelmed for first 2 weeks - Talk to your doctor if: severe anxiety, trouble bonding with baby, withdrawing from other family members, thoughts of harming yourself or others Margarita Escamilla DO [facility] [phone] Patient Instructions: Depression, Hemorrhage, DI for Labor and Delivery, Vaginal , DI for Pre-eclampsia, [facility] Post Discharge Instructions Providers Primary Care Provider: Koki Barajas Admit Provider: Nahomy Delgado Attending Provider: Nahomy Delgado
== END 2023-11-11 12:30 | disposition home or self-care (01) | DRG 807 ==
LOC: OBOUT 12:42 → OB 12:42
PROVIDERS: Admitting Provider Obstetrics & Gynecology; PCP Physician Assistant; Visit Provider Obstetrics & Gynecology
DX: O60.14X0 Preterm labor third trimester with preterm delivery third trimester, not applicable or unspecified (principal); Z37.0 Single live birth; Z3A.37 37 weeks gestation of pregnancy; O42.92 Full-term premature rupture of membranes, unspecified as to length of time between rupture and onset of labor
CPT/HCPCS: 59409; 36415; 59025; 80307; 81001; 82800; 84112; 85025; 86850; 87086; 94761; G0283

== ENCOUNTER 2023-11-14 18:24 | Emergency (ER) | payer OTHER, SELFPAY ==
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
[2023-11-14 19:27] VITALS: BP 121/62; PULSE 73; RESP 16; TEMP 37.1; O2SAT 99; BMI 29.2
[2023-11-14 20:14] LABS: Adenovirus,PCR Not Detected (NotDetected); Coronavirus 19, PCR Not Detected (NotDetected); Coronavirus 229E Not Detected (NotDetected); Coronavirus NL63 Not Detected (NotDetected); Coronavirus OC43 Not Detected (NotDetected); Coronovirus HKU1,PCR Not Detected (NotDetected); Human Metapneumovirus Not Detected (NotDetected); Influenza A, PCR Not Detected (NotDetected); Influenza AH1, 2009 Not Detected (NotDetected); Influenza AH1, PCR Not Detected (NotDetected); Influenza AH3,PCR Not Detected (NotDetected); Influenza B, PCR Not Detected (NotDetected); Parainfluenza 1, PCR Not Detected (NotDetected); Parainfluenza 2, PCR Not Detected (NotDetected); Parainfluenza 3, PCR Not Detected (NotDetected); Parainfluenza 4, PCR Not Detected (NotDetected); Respiratory Syncytial Virus Not Detected (NotDetected); Rhinovirus/Enterovirus Not Detected (NotDetected)
[2023-11-14 20:19] VITALS: BP 121/62; PULSE 73; RESP 16; TEMP 37.1; O2SAT 99
== END 2023-11-14 20:20 | disposition home or self-care (01) ==
PROVIDERS: Emergency Provider Nurse Practitioner Family; PCP Physician Assistant
DX: R05.9 Cough, unspecified (principal); R68.83 Chills (without fever); R53.81 Other malaise; F17.290 Nicotine dependence, other tobacco product, uncomplicated; Z20.818 Contact with and (suspected) exposure to other bacterial communicable diseases
CPT/HCPCS: 87632; 87635; 99212; 99214; G0463

== ENCOUNTER 2023-12-25 09:16 | Outpatient (CLI) | payer OTHER, SELFPAY ==
[2023-12-25 09:51] LABS: Basophils % 0.4 % (0.1-2.0); Eosinophils # 0.1 K/mm3 (0.0-0.4); Eosinophils % 0.8 % (0.1-12.0); Hematocrit 39.2 % (37.0-47.0); Lymphocytes # 1.6 K/mm3 (0.7-4.5); Lymphocytes % 18.2 % (10-50); Mean Corpuscular HGB Conc 33.1 g/dL (31.8-35.4); Mean Corpuscular Hemoglobin 29.7 pg (27.0-31.2); Mean Corpuscular Volume 89.5 fl (81-99); Mean Platelet Volume 8.2 fl (7.4-10.4); Monocytes # 0.4 K/mm3 (0.1-1.0); Monocytes % 4.1 % (1.7-9.3); Neutrophils # 6.8 K/mm3 (1.8-7.8); Neutrophils % 76.4 % (37.0-80.0); Platelet Count 312 K/mm3 (142-424); Red Blood Count 4.38 M/mm3 (4.20-5.40); Red Cell Distribution Width 12.1 % (11.5-17.5); White Blood Count 8.9 K/mm3 (4.8-10.8)
[2023-12-25 10:00] LABS: Urine Pregnancy, HCG Qual. Negative (Negative)
[2023-12-25 10:38] LABS: Chloride 105 mmol/L (98-107); Potassium 4.1 mmoL/L (3.5-5.1); Sodium 139 mmol/L (136-145)
[2023-12-25 10:41] LABS: Alanine Aminotransferase 29 U/L (12-78); Albumin Level 4.2 g/dl (3.5-5.0); Albumin/Globulin Ratio 1.7 (1.1-1.8); Alkaline Phosphatase 63 U/L (38-126); Anion Gap 11.1 mEq/L (5-15); Aspartate Amino Transferase 28 U/L (14-36); Bilirubin,Total 0.4 mg/dl (0.2-1.3); Blood Urea Nitrogen 12 mg/dl (7-17); Calcium 8.8 mg/dl (8.4-10.2); Carbon Dioxide 27 mmol/L (22.0-30.0); Estimated Glomerular Filt Rate 83 ml/min (>60); GFR (African American) 101 ML/MIN (>60); Globulin 2.5 g/dL (1.3-3.2); Glucose 96 mg/dl (74-100); Total Protein,Serum 6.7 g/dl (6.3-8.2)
== END 2023-12-25 23:59 ==
LOC: LAB 09:17
PROVIDERS: PCP Physician Assistant; Visit Provider Nurse Practitioner Obstetrics & Gynecology
DX: Z01.818 Encounter for other preprocedural examination (principal)
CPT/HCPCS: 36415; 80053; 81025; 85025

== ENCOUNTER 2023-12-28 07:19 | Day surgery (SDC) | payer OTHER, SELFPAY ==
[2023-12-26 16:26] VITALS: BMI 29.2
[2023-12-28] VITALS (10 sets, daily range): BP systolic 118–135; BP diastolic 53–86; PULSE 61–79; RESP 12–18; TEMP 36.1–43; O2SAT 96–100
[2023-12-28] MEDS: LACTATED RINGERS 1000ML 1,000 ML 25 ML IV (07:28)
[2023-12-28] MEDS: CEFAZOLIN SODIUM 1 GM in 0.9 % SODIUM CHLORIDE 50 ML IV (08:57)
[2023-12-28] MEDS: ROPIVACAINE 0.5% 30ML VIAL 150 MG ×2 (08:58→09:11)
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
--- NOTE | 2023-12-28 09:28 | EXP.ANES.I ---
[facility] Anesthesia Record Part I Anesthesia Record I Intake, IV Amount: 1,800 Hydration: Adequate Estimated blood loss (mL): 25 Urine output (mL): 300 Blood Pressure: 127/83 SaO2: 96 Pulse Rate: 68 Airway Patency: Patent Respiratory Rate: 12 Temperature: 97.8 F Patient is:: Awake and Stable Stable to PACU at:: 09:25
--- NOTE | 2023-12-28 09:29 | EXP.OP.NOTE ---
Date of procedure: 12/28/23 Pre-op Diagnosis:: Desire for sterilization Post-op Diagnosis:: Desire for sterilization Procedure performed:: Laparoscopic bilateral salpingectomy. Surgeon:: Gasper Johnson MD MOTTLE LAY UP OPERATOR:: Andrew Borja Anesthesia: GETA Estimated blood loss (mL): 25 Clinical Note:: She is a 6 para 4 aborta 2 who was 7 weeks . She expressed desire for sterilization. The risk and benefits of surgery as well as the irreversibility of bilateral salpingectomy were discussed with the patient. Operative findings:: She had a normal-appearing anteverted somewhat bulky uterus. Tubes and ovaries appeared normal. Pelvis appeared normal. The appendix was visualized and appeared normal. The upper abdomen and deep pelvis. Operative note:: She was taken to the operating room where general anesthesia was found be adequate. She was prepped and draped in normal sterile fashion in the semilithotomy position. A weighted speculum was placed in the vagina and the anterior lip of the cervix was grasped with a tenaculum. I then inserted a Victorina uterine manipulator into the cervical os. The balloon was then insufflated. I changed gloves and injected 10 cc of 0.5% ropivacaine around her umbilicus and made a small incision within the umbilicus. I inserted a Veress needle into the abdominal cavity. The peritoneal cavity was then insufflated with carbon dioxide gas to a pressure of 20 mmHg. I then inserted a 5 millimeter trocar under direct vision. I injected through and through the pubic hairline, made a small incision here and inserted an 8 mm trocar under direct vision. I identified the inferior epigastric artery on the left side, went lateral to these and injected through and through. I then placed a 5 mm trocar here under direct vision. The pelvis and upper abdomen were then inspected and the findings were as previously dictated. I grasped the right tube at the cornua and using harmonic scalpel on coagulation mode I cut through the tube. I then grasped the distal tube and using harmonic scalpel cut along the mesosalpinx. The tube was removed through 8 mm trocar site. This was similarly performed on the patient's left side. There was a small amount of ooze from the left cornua and I used harmonic scalpel to coagulate this. It was hemostatic by elected to place powdered Surgicel in this area. I let the cassette of the abdomen and once again it was found to be hemostatic. I then injected 30 cc of 0.5% ropivacaine into the pelvis. After assuring hemostasis the gas was let out of the abdomen and hemostasis was once again assured. The abdomen was then reinsufflated. The secondary trochars were removed under direct vision. The gas was let out her abdomen. The primary trocar was then removed. The 8 mm trocar site was closed deeply with 2-0 Vicryl suture followed by subcuticular 4-0 Monocryl suture. The 5 mm trocar sites were closed with subcuticular 4-0 Monocryl. Sterile dressings were applied. The patient tolerated the procedure well and was taken to the recovery room in excellent condition. All sponge instrument and needle counts were correct. The estimated blood loss was less than 25 cc. Condition: stable Disposition: PACU Specimens:: Bilateral fallopian tubes Complications:: None
--- NOTE | 2024-01-01 14:02 | P.PNANES_ITS ---
[facility] Anesthesia Record Part II Anesthesia Record Part II Discharge Time: 09:55 Destination: Surgical Day Care (OP Surgery) PACU nurse assessment reviewed?: Yes Patient Condition:: Good Anesthesia Complications:: None Swallowing reflex intact?: Yes Airway Patency: Patent Cyanosis?: No Blood Pressure: 128/84 SaO2: 98 Respiratory Rate: 16 Pulse Rate: 61 Temperature: 97 F Mental Status: Alert & Oriented Pain level:: 3 Nausea and/or vomitting:: None Intake, IV Amount: 0 Hydration: Adequate
[2024-01-01 14:03] VITALS: BP 128/84; PULSE 61; RESP 16; TEMP 36.1; O2SAT 98
== END 2023-12-28 10:25 | disposition home or self-care (01) ==
PROVIDERS: PCP Physician Assistant; Visit Provider Nurse Practitioner Obstetrics & Gynecology
PROC: (CPT 58661; principal; 2023-12-28 09:00)
DX: Z30.2 Encounter for sterilization (principal)
CPT/HCPCS: 58661; 96374; J2405

== ENCOUNTER 2024-01-15 14:02 | Outpatient (CLI) | payer OTHER, SELFPAY ==
--- NOTE | 2024-01-15 14:02 | US_ITS ---
PROCEDURE INFORMATION: Exam: US Right Breast, Complete Exam date and time: 01/15/2024 2:24 PM Age: 33 years old Clinical indication: Palpable abnormality in the right 11 o'clock retroareolar region TECHNIQUE: Imaging protocol: Complete ultrasound of all four quadrants of the right breast and the retroareolar regions, including ultrasound of the axilla when performed. COMPARISON: No relevant prior studies available. FINDINGS: Breast: Sonographic images of the right breast including the retroareolar region, all 4 quadrants and the axilla do not demonstrate any solid masses. Fairly widespread cystic changes present measuring to 1.7 cm in the 4 o'clock axis 4 cm from the nipple. There are no focal suspicious findings in the right 11 o'clock retroareolar region where the patient reports a palpable abnormality. Moderate retroareolar duct ectasia is incidentally noted. No architectural distortion or acoustical shadowing. No skin thickening or axillary adenopathy. IMPRESSION: A skin marker should be placed over the area of palpable concern followed by a diagnostic unilateral mammogram with spot compression views for full evaluation of the patient's complaint of a palpable abnormality. ASSESSMENT: BI-RADS Category 0: Incomplete- Need Additional Imaging Evaluation and/or Prior Mammograms for Comparison
--- NOTE | 2024-01-15 14:22 | US_ITS ---
PROCEDURE INFORMATION: Exam: US Left Breast, Complete Exam date and time: 01/15/2024 2:50 PM Age: 33 years old Clinical indication: Palpable abnormality in the left retroareolar region TECHNIQUE: Imaging protocol: Complete ultrasound of all four quadrants of the left breast and the retroareolar regions, including ultrasound of the axilla when performed. COMPARISON: No relevant prior studies available. FINDINGS: Breast: Sonographic images of the left breast including the retroareolar region, all 4 quadrants and the axilla do not demonstrate any solid masses. Scattered cystic changes present measuring up to 1.8 cm in the 1 o'clock axis 4 cm from the nipple. Moderate retroareolar duct ectasia is incidentally noted. No architectural distortion or acoustical shadowing. No skin thickening or axillary adenopathy. IMPRESSION: A skin marker should be placed over the area of palpable concern followed by a diagnostic unilateral mammogram with spot compression views for full evaluation of the patient's complaint of a palpable abnormality. ASSESSMENT: BI-RADS Category 0: Incomplete- Need Additional Imaging Evaluation and/or Prior Mammograms for Comparison
== END 2024-01-15 23:59 ==
LOC: RAD 14:02
PROVIDERS: PCP Physician Assistant; Visit Provider Nurse Practitioner Obstetrics & Gynecology
DX: N63.11 Unspecified lump in the right breast, upper outer quadrant (principal); N63.42 Unspecified lump in left breast, subareolar
CPT/HCPCS: 76641

== ENCOUNTER 2024-01-29 13:51 | Outpatient (CLI) | payer OTHER, SELFPAY ==
--- NOTE | 2024-01-29 13:52 | MM_ITS ---
PROCEDURE INFORMATION: Exam: Bilateral Diagnostic Breast Tomosynthesis Exam date and time: 01/29/2024 1:43 PM Age: 33 years old Clinical indication: Bilateral palpable abnormalities TECHNIQUE: Imaging protocol: Bilateral Diagnostic tomosynthesis and 2D mammography including computer-aided detection (CAD) when performed. Unilateral or bilateral exam. COMPARISON: 1. US BREAST LT COMPLETE 01/15/2024 2:50 PM 2. US BREAST RT COMPLETE 01/15/2024 2:24 PM FINDINGS: MAMMOGRAPHY: The breast tissue is extremely dense, which lowers the sensitivity of mammography. There is no stellate mass, architectural distortion or suspicious microcalcifications in either breast to suggest malignancy. No skin thickening or axillary adenopathy. A skin marker was placed over an area of palpable concern in the anterior left upper outer quadrant. No suspicious mass lesions are seen on routine or spot compression views. Ovoid 1.5 cm mass in the right inferior breast corresponds to underlying cystic change on sonography. An additional skin marker was placed over a palpable abnormality in the right inferior breast. Dense breast tissue is noted on routine and spot compression views. IMPRESSION: Palpable abnormality in the left breast corresponds to normal fibroglandular structures on mammography and sonography. Palpable abnormality in the right inferior breast corresponds to dense fibroglandular structures and sonographically detected benign cystic change.Further evaluation of a palpable abnormality should be based on clinical grounds regardless of radiographic findings or lack thereof.Annual bilateral mammographic screening is recommended to commence at the age of 40 unless otherwise clinically indicated. ASSESSMENT: BI-RADS Category 2: Benign.
== END 2024-01-29 23:59 ==
LOC: RAD 13:52
PROVIDERS: PCP Physician Assistant; Visit Provider Nurse Practitioner Obstetrics & Gynecology
DX: R92.8 Other abnormal and inconclusive findings on diagnostic imaging of breast (principal)
CPT/HCPCS: 77062; 77066; G0279

== ENCOUNTER 2024-03-22 11:33 | Emergency (ER) | payer OTHER, SELFPAY ==
[2024-03-22 12:30] VITALS: BP 109/64; PULSE 60; RESP 21; TEMP 36.8; O2SAT 98; BMI 28.0
[2024-03-22 12:52] LABS: Microscopic, Urine URINE MICROSCOPIC (MICROSCOPIC)
[2024-03-22 12:55] LABS: UTC Pregnancy Test, Urine Negative (Negative)
[2024-03-22 12:56] LABS: Appearance,Urine CLOUDY (Clear); Bilirubin,Urine Negative (Negative); Blood, Urine Negative (Negative); Color,Urine YELLOW (Yellow); Glucose,Urine (UA) Negative (Negative); Ketones,Urine Negative (Negative); Leukocyte Esterase,Urine Negative (Negative); Nitrate,Urine Negative (Negative); PH,Urine 8.5 (5.0-8.5); Protein,Urine Negative (Negative)
[2024-03-22 13:09] LABS: Amorphous Sediment,Urine 3+ /lpf; Bacteria,Urine 2+ /lpf; Squamous Epithelial Cell,Urine Occasional #/hpf (0-5); WBC,Urine Occasional #/hpf (0-3)
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
[2024-03-22 13:40] VITALS: BP 109/64; PULSE 60; RESP 21; TEMP 36.8; O2SAT 98
[2024-03-25 08:42] LABS: Neisseria gonorrhoeae, NAA Negative (Negative)
--- NOTE | 2024-03-26 08:53 | PC.NURSE ---
Spoke with patient about reject lab specimen. She stated that she doesn't want to be reswabbed she will just follow up with her obgyn in 21 days.
== END 2024-03-22 13:42 | disposition home or self-care (01) ==
PROVIDERS: Emergency Provider Nurse Practitioner; PCP Physician Assistant
DX: A49.3 Mycoplasma infection, unspecified site (principal)
CPT/HCPCS: 81001; 81025; 87086; 87491; 87591; 99212; 99214; G0463

== ENCOUNTER 2024-06-17 11:23 | Emergency (ER) | payer OTHER, SELFPAY ==
[2024-06-17 11:35] VITALS: BP 113/71; PULSE 83; RESP 18; TEMP 36.4; O2SAT 98; BMI 30.7
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
[2024-06-17 12:03] LABS: Apearance,Urine Clear (Clear); Bilirubin,Urine 1+ (Negative); Blood, Urine 1+ (Negative); Color,Urine Yellow (Yellow); Glucose,Urine (UA) Negative (Negative); Protein,Urine 1+ (Negative); Specific Gravity, Urine >= 1.030 (1.005-1.030); UTC Leukocyte Esterase,Urine Negative (Negative); UTC Nitrate,Urine Negative (Negative); Urobilinogen,Urine 0.2 EU/dl (0.2)
[2024-06-17 12:05] LABS: Ketones,Urine TRACE (Negative)
[2024-06-17 12:16] VITALS: BP 113/71; PULSE 83; RESP 18; TEMP 36.4; O2SAT 98
[2024-06-19 06:13] LABS: Neisseria gonorrhoeae, NAA Negative (Negative)
== END 2024-06-17 12:32 | disposition home or self-care (01) ==
PROVIDERS: Emergency Provider Nurse Practitioner; PCP Physician Assistant
DX: N89.8 Other specified noninflammatory disorders of vagina (principal)
CPT/HCPCS: 81003; 87491; 87591; 99212; 99213; G0463

== ENCOUNTER 2024-06-29 18:53 | Emergency (ER) | payer OTHER, SELFPAY ==
[2024-06-29 19:20] VITALS: BP 107/72; PULSE 84; RESP 20; TEMP 37.2; O2SAT 98; BMI 27.1
[2024-06-29 20:05] VITALS: BP 107/72; PULSE 84; RESP 20; TEMP 37.2; O2SAT 98
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
[2024-06-29 20:09] LABS: UTC Strep Screen (Rapid) Negative (Negative)
== END 2024-06-29 20:18 | disposition home or self-care (01) ==
PROVIDERS: Emergency Provider Nurse Practitioner Family; PCP Physician Assistant
DX: R51.9 Headache, unspecified (principal); J06.9 Acute upper respiratory infection, unspecified; Z20.822 Contact with and (suspected) exposure to COVID-19
CPT/HCPCS: 87635; 87880; 99212; 99213; G0463

== ENCOUNTER 2024-10-28 09:06 | Emergency (ER) | payer OTHER, SELFPAY ==
[2024-10-28 09:08] VITALS: BP 124/71; PULSE 98; RESP 18; TEMP 36.7; O2SAT 99; BMI 23.3
--- NOTE | 2024-10-28 09:22 | PC.NURSE ---
DR DAVISON AT BEDSIDE
--- NOTE | 2024-10-28 09:23 | PC.NURSE ---
Dr. Orona at [facility]
[2024-10-28 09:30] VITALS: BP 111/78; PULSE 94; O2SAT 98
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
[2024-10-28] MEDS: ALUMINUM/MAGNESIUM/SIMETHICONE 30ML UDC 30 ML PO (09:31)
[2024-10-28] MEDS: RINGERS SOLUTION,LACTATED 500 ML 999 ML IV (09:45)
[2024-10-28 09:52] LABS: Basophils # 0.1 K/mm3 (0-0.2); Basophils % 0.7 % (0.1-2.0); Eosinophils % 0.2 % (0.1-12.0); Hematocrit 43.7 % (37.0-47.0); Hemoglobin 15.1 g/dL (12.2-16.2); Lymphocytes # 1.2 K/mm3 (0.7-4.5); Lymphocytes % 17.8 % (10-50); Mean Corpuscular HGB Conc 34.6 g/dL (31.8-35.4); Mean Corpuscular Volume 86.6 fl (81-99); Mean Platelet Volume 7.4 fl (7.4-10.4); Monocytes # 0.4 K/mm3 (0.1-1.0); Monocytes % 6.2 % (1.7-9.3); Neutrophils % 75.1 % (37.0-80.0); Platelet Count 252 K/mm3 (142-424); Red Blood Count 5.05 M/mm3 (4.20-5.40); Red Cell Distribution Width 12.5 % (11.5-17.5); White Blood Count 6.7 K/mm3 (4.8-10.8)
[2024-10-28 09:57] LABS: Albumin Level 5.2 g/dl (3.5-5.0); Chloride 106 mmol/L (98-107); Potassium 4.3 mmoL/L (3.5-5.1); Sodium 138 mmol/L (136-145)
[2024-10-28 09:59] LABS: Alanine Aminotransferase 37 U/L (12-78); Aspartate Amino Transferase 65 U/L (14-36); Blood Urea Nitrogen 14 mg/dl (7-17); Creatinine Clearance Estimated 84 mL/min (50-200); Estimated Glomerular Filt Rate 72 ml/min (>60); GFR (African American) 87 ML/MIN (>60)
[2024-10-28 10:00] VITALS: BP 117/74; PULSE 77; O2SAT 100
[2024-10-28 10:00] LABS: Albumin/Globulin Ratio 1.9 (1.1-1.8); Alkaline Phosphatase 73 U/L (38-126); Anion Gap 21.3 mEq/L (5-15); Bilirubin,Total 1.9 mg/dl (0.2-1.3); Carbon Dioxide 15 mmol/L (22.0-30.0); Creatine Kinase 47 U/L (30-135); Globulin 2.8 g/dL (1.3-3.2); Glucose 76 mg/dl (74-100)
[2024-10-28 10:10] LABS: HCG Qualitative, Serum Negative (Negative)
[2024-10-28 10:30] VITALS: BP 108/68; PULSE 76; O2SAT 98
--- NOTE | 2024-10-28 10:44 | PC.NURSE ---
SPRITE FOR PO CHALLENGE, PT WITHOUT NEEDS AT THIS TIME
[2024-10-28 10:45] VITALS: BP 108/68; PULSE 86; O2SAT 98
[2024-10-28 10:59] VITALS: BP 108/68; PULSE 80; RESP 18; TEMP 36.7; O2SAT 98
[2024-10-28 12:32] LABS: HIV (1&2) Antibody Rapid NONREACTIVE (NONREACTIVE)
[2024-10-29 09:16] LABS: HCV Ab Non Reactive (Non Reactive)
== END 2024-10-28 11:06 | disposition home or self-care (01) ==
PROVIDERS: Emergency Provider Student in an Organized Health Care Education/Training Program; PCP Physician Assistant
DX: R13.10 Dysphagia, unspecified (principal); R11.2 Nausea with vomiting, unspecified; R53.1 Weakness; M79.10 Myalgia, unspecified site; R06.02 Shortness of breath
CPT/HCPCS: 80053; 82550; 84703; 85025; 86803; 87389; 96360; 99283; J7120

== ENCOUNTER 2024-11-22 07:06 | Emergency (ER) | payer OTHER, SELFPAY ==
[2024-11-22 07:08] VITALS: BP 106/53; PULSE 90; RESP 18; TEMP 36.9; O2SAT 95; BMI 23.9
[2024-11-22 07:16] LABS: Coronavirus 19, PCR Not Detected (NotDetected); Influenza B, PCR Not Detected (NotDetected)
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
[2024-11-22 07:30] VITALS: BP 112/70; PULSE 88; O2SAT 99
[2024-11-22 07:39] LABS: Influenza A, PCR Detected (NotDetected)
[2024-11-22] MEDS: ONDANSETRON 4MG ODT 4 MG SL (07:42)
[2024-11-22] MEDS: BENZONATATE 100MG CAPSULE 100 MG PO (07:42)
[2024-11-22] MEDS: ACETAMINOPHEN 500MG TAB 1000 MG PO (07:42)
[2024-11-22] MEDS: IBUPROFEN 600 MG TABLET PO (07:42)
--- NOTE | 2024-11-22 07:46 | PC.NURSE ---
Dr. Gamboa at [facility] for update on POC
[2024-11-22 07:56] VITALS: BP 112/70; PULSE 91; RESP 19; TEMP 36.9; O2SAT 97
== END 2024-11-22 07:57 | disposition home or self-care (01) ==
PROVIDERS: Emergency Provider Student in an Organized Health Care Education/Training Program; PCP Physician Assistant
DX: J10.1 Influenza due to other identified influenza virus with other respiratory manifestations (principal); B34.9 Viral infection, unspecified; R09.89 Other specified symptoms and signs involving the circulatory and respiratory systems; M79.10 Myalgia, unspecified site; R50.9 Fever, unspecified; R05.9 Cough, unspecified; R11.0 Nausea
CPT/HCPCS: 87636; 99283; Q0162

== ENCOUNTER 2025-01-08 13:30 | Outpatient (CLI) | payer OTHER, SELFPAY ==
[2025-01-08 14:48] LABS: Basophils # 0.1 K/mm3 (0-0.2); Basophils % 0.7 % (0.1-2.0); Eosinophils % 0.6 % (0.1-12.0); Hematocrit 41.1 % (37.0-47.0); Hemoglobin 13.9 g/dL (12.2-16.2); Lymphocytes # 1.3 K/mm3 (0.7-4.5); Lymphocytes % 19.7 % (10-50); Mean Corpuscular HGB Conc 33.8 g/dL (31.8-35.4); Mean Corpuscular Hemoglobin 30.1 pg (27.0-31.2); Mean Platelet Volume 10.2 fl (7.4-10.4); Monocytes # 0.7 K/mm3 (0.1-1.0); Monocytes % 9.7 % (1.7-9.3); Neutrophils # 4.7 K/mm3 (1.8-7.8); Platelet Count 281 K/mm3 (142-424); Red Blood Count 4.62 M/mm3 (4.20-5.40); Red Cell Distribution Width 12.2 % (11.5-17.5); White Blood Count 6.8 K/mm3 (4.8-10.8)
[2025-01-08 16:24] LABS: Albumin Level 4.6 g/dl (3.5-5.0); Chloride 104 mmol/L (98-107); Potassium 4.3 mmoL/L (3.5-5.1); Sodium 139 mmol/L (136-145)
[2025-01-08 16:27] LABS: Alanine Aminotransferase 13 U/L (12-78); Alkaline Phosphatase 48 U/L (38-126); Anion Gap 10.3 mEq/L (5-15); Aspartate Amino Transferase 18 U/L (14-36); Bilirubin,Direct 0.1 mg/dl (0.0-0.4); Bilirubin,Indirect 0.6 mg/dL (0.0-0.9); Bilirubin,Total 0.7 mg/dl (0.2-1.3); Bilirubin,Unconjugated 0.7 mg/dL (0.0-1.1); Blood Urea Nitrogen 14 mg/dl (7-17); Calcium 8.9 mg/dl (8.4-10.2); Carbon Dioxide 29 mmol/L (22.0-30.0); Chol/HDL Ratio 2.3 (1-3.5); Cholesterol 133 mg/dl (140-200); Estimated Glomerular Filt Rate 83 ml/min (>60); GFR (African American) 100 ML/MIN (>60); Glucose 65 mg/dl (74-100); HDL Cholesterol 58 mg/dl (40-60); Total Protein,Serum 6.6 g/dl (6.3-8.2); Triglycerides 74 mg/dl (30-150); VLDL Cholesterol 15 mg/dL (0-40)
[2025-01-08 16:38] LABS: Direct LDL Cholesterol 55.27 mg/dL (100-129)
[2025-01-08 16:56] LABS: Thyroid Stimulating Hormone 0.67 uIU/mL (0.465-4.68)
[2025-01-08 18:48] LABS: Free T4 (Free Thyroxine) 1.03 ng/dl (0.78-2.19)
== END 2025-01-08 23:59 | disposition home or self-care (01) ==
LOC: LAB 13:30
PROVIDERS: PCP Physician Assistant; Visit Provider Nurse Practitioner
DX: R07.89 Other chest pain (principal); R00.2 Palpitations; I49.3 Ventricular premature depolarization
CPT/HCPCS: 36415; 80048; 80061; 80076; 84439; 84443; 85025

== ENCOUNTER 2025-01-22 10:26 | Outpatient (CLI) | payer OTHER, SELFPAY ==
--- NOTE | 2025-01-22 | CA_ITS ---
APPROVED REPORT Exam: Exercise Treadmill Technologist: Natividad Davis Ht: 5 ft 3 in Wt: 140 lbs BSA: 1.66 m2 HR: 78 bpm BP: 103/57 mmHg Rhythm: NSR Stress Test Details Test: Exercise stress testing was performed using a Neftali protocol. HR Resting HR: 78 bpm Max Heart Rate (APMHR): 187 bpm Max HR Achieved: 130 bpm Target HR (85% APMHR): 159 bpm % of APMHR: 70 Recovery HR: 91 bpm HR response to stress: Blunted HR response to stress BP Resting BP: 103.0/57.0 mmHg Max BP: 126.0/58.0 mmHg Recovery BP: 113.0/65.0 mmHg BP response to stress: Normal blood pressure response to stress. ECG Resting ECG: NSR Stress ECG: < 0.[address] depression Arrhythmia: None Clinical Exercise duration: 5:14 min Exercise capacity: 7.1 METs Overall Exercise Capacity for Age: Poor Stress ECG Conclusion This is considered a nondiagnostic ECG stress test in the setting of inability to achieve target HR. Symptoms: Shortness of air with peak exercise. Stopped due to shortness of air. Arrhythmias/Ectopy: None ST-T Changes: Non-diagnostic due to patient inability to reach target HR. At the level of HR achieved, no ECG findings of ischemia. Conclusion: Poor exercise capacity Nondiagnostic ECG stress test due to the inability to achieve target HR Further evaluation with alternative modality, such as CCTA or pharmacologic nuclear stress testing, is suggested, if clinically feasible and indicated. Electronically signed by : Justa Crowell MD 01/27/2025 23:30:03
== END 2025-01-22 23:59 | disposition home or self-care (01) ==
LOC: RT 10:27
PROVIDERS: PCP Physician Assistant; Visit Provider Nurse Practitioner
DX: R07.89 Other chest pain (principal); R00.2 Palpitations; I49.3 Ventricular premature depolarization
CPT/HCPCS: 93017; 93018

== ENCOUNTER 2025-02-19 10:53 | Outpatient (CLI) | payer OTHER, SELFPAY ==
--- NOTE | 2025-02-19 10:56 | CA_ITS ---
APPROVED REPORT EXAM: Comprehensive 2D, Doppler, and color-flow Echocardiogram Driver Education Road Instructor: Nilsa Mendiola RVT Ht: 5 ft 3 in Wt: 139lbs BSA: 1.66 BP: 106/63 mmHg Indications: Chest pain, murmur 2D Dimensions LA Volume 29.90 mL LA Volume Index 18.01 mL/m2 (M/F) 16-34 M-Mode Dimensions RVDd 2.18 cm (0.9-2.6) LA Diam 3.08 cm (1.9-4.0) LVDd 4.73 cm (3.5-5.7) LVDs 3.32 cm (3.5-5.7) IVSd 0.27 cm (0.6-1.1) PWd 0.67 cm (0.6-1.1) EF (Teich) 56.90% FS 29.80% EDV (Teich) 103.90 mL TAPSE 2.26 (<1.7) ESV (Teich) 44.80 mL LV Diastology E Decel Time 213 (160-240 msec) E/A Ratio 1.5 Aortic Valve LARA Index 1.51 cm2/m2 AoV Peak Darnell. 127.0 (50-130 cm/s) AO Peak GR. 6.40 mmHg AO Mean GR. 3.20 (<5 mmHg) AO VTI 28.0 (18-25 cm) LARA (VTI) 2.56 (2.5-4.5 cm2) Mitral Valve MV E Max Darnell. 121.0 (40-130 cm/s) MV A Velocity 79.0 (40-130 cm/s) E/A Ratio 1.55 MV PHT 62.0 ms Pulmonary Valve PV Peak Velocity 55.0 (50-150 cm/s) Tricuspid Valve TR P. Velocity 310.00 cm/s RAP Estimate 10.00 mmHg RVSP 48.50 mmHg Left Ventricle The left ventricle is normal size. The left ventricular systolic function is normal. The left ventricular ejection fraction is within the normal range. There is normal left ventricular wall thickness. There is normal LV segmental wall motion. The left ventricular diastolic function is normal. LVEF is 55%. Right Ventricle The right ventricle is mildly dilated. The right ventricular systolic function is normal. Atria The left atrium size is normal. The right atrium size is normal. There is no Doppler evidence of interatrial shunt. Aortic Valve Aortic valve opens well. There is no aortic valvular stenosis. No aortic regurgitation is present. Mitral Valve The mitral valve is normal in structure. No evidence of mitral valve stenosis. Trace mitral regurgitation. Tricuspid Valve Tricuspid valve is grossly normal in structure and function. Mild tricuspid regurgitation. RVSP 20-25 mmHg. Pulmonic Valve The pulmonary valve is normal in structure. Trace pulmonic regurgitation. Great Vessels The aortic root is normal in size. IVC is normal in size and collapses >50% with inspiration. Pericardium There is no pericardial effusion. Other Information Study Quality: Fair Conclusion Normal biventricular systolic function. Mild RV dilation. Mild TR. Electronically signed by : Justa Crowell MD 03/01/2025 22:42:10
[2025-02-19 11:38] VITALS: BMI 23.0
[2025-02-19 11:41] VITALS: BP 104/66; PULSE 56; RESP 20; TEMP 36.7; O2SAT 97
[2025-02-19 12:06] LABS: HCG Qualitative, Serum Negative (Negative)
[2025-02-19 12:16] LABS: Chloride 103 mmol/L (98-107); Potassium 3.4 mmoL/L (3.5-5.1); Sodium 139 mmol/L (136-145)
[2025-02-19 12:19] LABS: Anion Gap 11.4 mEq/L (5-15); Blood Urea Nitrogen 10 mg/dl (7-17); Carbon Dioxide 28 mmol/L (22.0-30.0); Creatinine Clearance Estimated 93 mL/min (50-200); Estimated Glomerular Filt Rate 83 ml/min (>60); GFR (African American) 100 ML/MIN (>60); Glucose 84 mg/dl (74-100)
[2025-02-19 12:35] VITALS: BP 129/84; PULSE 61; RESP 18; O2SAT 100
[2025-02-19 12:40] VITALS: BP 111/75; PULSE 54; O2SAT 99
[2025-02-19 12:45] VITALS: BP 103/58; PULSE 54; O2SAT 100
[2025-02-19] MEDS: IOPAMIDOL-370 (76%);100ML BOTTLE 85 ML IV (12:46)
[2025-02-19] MEDS: SODIUM CHLORIDE 0.9% 10ML SYR (RAD ONLY) 10 ML IV (12:46)
[2025-02-19] MEDS: 0.9 % SODIUM CHLORIDE 50 ML VIAL IV (12:46)
--- NOTE | 2025-02-19 13:00 | CT_ITS ---
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 A noncontrast coronary calcium scan was performed. A CT attenuation threshold of 130 Hounsfield units (HU) was used for the detection of calcium in contiguous voxels of 1 sq mm in area to be counted as individual lesions. Bolus tracking in the ascending aorta with a threshold of 180 HU was performed. Immediately afterwards, ECG synchronized cardiac CT was then performed from the cardiac base to apex using retrospective gating with ECG tube current modulation. A total of 85 mL of Isovue 370 mg/mL contrast medium was administered at 5 mL/sec followed by a saline flush using a biphasic injection protocol. A tube voltage of 120 KVp was used. The patient received no medications prior to the cardiac CT. The average heart rate at the time of acquisition was 58 bpm and regular. Image Reconstruction Transaxial images were reconstructed at 0.67 mm slide thickness. Data was reviewed interactively on an advanced workstation capable of 2 and 3-dimensional displays in all conventional reconstruction formats, including multiplanar reformations, maximum intensity projections, curved multiplanar reformations, and volume rendered reconstructions. When applicable, selected routine images describing the relevant coronary anatomy and pathology were saved and sent to PACS. Complications None Technical Quality Overall image quality was good. Coronary artery opacification was adequate. Total DLP (Dose-Length Product) is 1778.0 mGy-cm. The reported value represents the total of one or more individual components during the CT acquisition of this date and at this time, and as such, the same value may appear in more than one CT report depending on the interpreting/reporting physicians. COMPARISON None FINDINGS CT Coronary Calcium Scoring LMA (Left Main Artery) = 0 LAD (Left Anterior Descending) = 0 LCX (Left Coronary Circumflex) = 0 RCA (Right Coronary Artery) = 0 Total Calcium Score = 0 using the AJ-130 method. The interpretation of the calcium heart score is based on the following continuum*: 0 = no calcified plaque detected (risk of coronary artery disease is very low ??? less than 5%) 1-10 = calcium detected in extremely minimal levels (risk of coronary diseases is still low ??? less than 10%) 11-100 = mild levels of plaque detected with certainty (mild or minimal narrowing of heart arteries is likely) 101-400 = definite,at least moderate levels of plaque detected (relatively high risk of a heart attack within 3-5 years) >401-999 = extensive levels of plaque detected (high risk of heart attack, high levels of vascular disease are present, high likelihood of at least one significant coronary narrowing) *The calcium heart score quantifies the burden of coronary calcification/plaque in the coronary arteries. The calcium heart score is not able to evaluate the presence or burden of non-calcified (i.e. soft) plaque. There is no identifiable calcification in the aortic valve, mitral annulus or mitral valve, pericardium, or myocardium. Coronary CT Angiography The coronary arterial system is right dominant. Quantitative Stenosis Grading: Left Main (LM): The left main originates normally from the left sinus of Valsalva. The LM bifurcates into the left anterior descending artery and left circumflex artery. The LM is patent with no evidence of atherosclerosis. Left Anterior Descending (LAD) and Diagonal Branches: The LAD gives off 3 diagonal branch(es). The LAD and its branches are patent with no evidence of atherosclerosis. There is no evidence of LAD-myocardial bridge. Left Circumflex (LCX) and Obtuse Marginals (OM): The LCX gives off 1 Obtuse Marginal (OM) branch(es). The LCX and its branches are patent with no evidence of atherosclerosis. Right Coronary Artery (RCA): The RCA originates normally from the right sinus of Valsalva. The RCA gives off a posterior descending artery (PDA) and posterolateral (PL) branches. The RCA and its branches are patent with no evidence of atherosclerosis. Non-Coronary Cardiac Findings: Analysis of the left ventricular (LV) structure and function was performed after 3-D reconstruction of the LV from axial images, with user-corrected automatic contouring for assessment of LV volumes and user-defined reconstruction from oblique planes for measurement of 3-D cardiac structure and function. -The left ventricle systolic function is normal. -There is no left atrial appendage filling defect. Two right pulmonary veins and two left pulmonary veins drain normally into the left atrium. -No pericardial thickening or calcification. -Central and branch pulmonary arteries in the [id number] are unremarkable. -Thoracic aorta within the visualized thoracic aortic-branches in the [id number] is unremarkable. Extracardiac Structures No significant extra-cardiac findings. Note, however, that this study is focused on the cardiac findings. IMPRESSION -Absence of coronary calcification with an Agatston score = 0 using the AJ-130 method. -No evidence of significant flow-limiting atherosclerosis of the coronary arteries. -No evidence of coronary anomalies or myocardial bridges. -CAD-RADS 0. Management recommendations per ACC/AHA guidelines*, as clinically appropriate. *Recommendations: CAD RADS 0: Reassurance. Consider non-atherosclerotic causes of chest pain. CAD RADS 1: Consider non-atherosclerotic causes of chest pain. Consider preventive therapy and risk factor modification. CAD RADS 2: Consider non-atherosclerotic causes of chest pain. Consider preventive therapy and risk factor modification, particularly for patients with nonobstructive plaque in multiple segments. CAD RADS 3: Consider further functional testing. Consider symptom-guided anti-ischemic and preventive pharmacotherapy as well as risk factor modification per published guideline statements. CAD RADS 4A: Consider further functional testing or invasive coronary angiography with revascularization per published guideline statements. Consider symptom-guided anti-ischemic and preventive pharmacotherapy as well as risk factor modification per published guideline statements. CAD RADS 4B: Invasive coronary angiography recommended with revascularization per published guideline statements. Consider symptom-guided anti-ischemic and preventive pharmacotherapy as well as risk factor modification per published guideline statements. CAD RADS 5: Consider invasive angiography and/or viability assessment with revascularization per published guideline statements. Consider symptom-guided anti-ischemic and preventive pharmacotherapy as well as risk factor modification per published guideline statements. CRITICAL RESULT None COMMUNICATION Per this written report The coronary and cardiac findings of this CCTA were reviewed, reported, and signed by Oliver Crowell MD (Livestock Buyer) Conclusion Electronically signed by : Justa Crowell MD 02/23/2025 22:17:22
== END 2025-02-19 12:52 | disposition home or self-care (01) ==
PROVIDERS: PCP Physician Assistant; Visit Provider Nurse Practitioner
DX: I51.7 Cardiomegaly (principal); I36.1 Nonrheumatic tricuspid (valve) insufficiency; R01.1 Cardiac murmur, unspecified; R94.39 Abnormal result of other cardiovascular function study
CPT/HCPCS: 75574; 80048; 84703; 93306; Q9967